=== PATIENT | male | born 1960 | race Caucasian/White ===

== ENCOUNTER 2017-10-15 22:47 | Inpatient (IN) | payer BC ==
[~2017-10-15] VITALS: Ht 170.2 cm; Wt 105.1 kg
[2017-10-15 23:00] VITALS: BP 130/86; PULSE 72; RESP 20; TEMP 98.3; O2SAT 97
[2017-10-15 23:40] LABS: BASOPHIL # 0.1 TH/MM3 (0-0.2); BASOPHIL % 0.9 % (0.0-2.0); EOSINOPHIL # 0.1 TH/MM3 (0-0.4); EOSINOPHIL % 0.9 % (0.0-4.0); HEMATOCRIT 32.3 % (39.0-51.0); HEMOGLOBIN 9.9 GM/DL (13.0-17.0); LYMPH % 34.3 % (9.0-44.0); LYMPHOCYTE # 3.1 TH/MM3 (1.0-4.8); MEAN CELL VOLUME 65.1 FL (80.0-100.0); MEAN CORPUSCULAR HGB CONC 30.7 % (32.0-36.0); MEAN PLATELET VOLUME 8.8 FL (7.0-11.0); MONO % 8.5 % (0.0-8.0); MONOCYTE # 0.8 TH/MM3 (0-0.9); NEUT % 55.4 % (16.0-70.0); PLATELET COUNT 372 TH/MM3 (150-450); RED BLOOD COUNT 4.96 MIL/MM3 (4.50-5.90); RED CELL DISTRIBUTION WIDTH 21.1 % (11.6-17.2)
[2017-10-15 23:54] LABS: PROTHROMBIN TIME - PATIENT 10.6 SEC (9.8-11.6)
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
[2017-10-16 00:08] LABS: ALBUMIN 3.6 GM/DL (3.4-5.0); ALT (GPT) 55 U/L (12-78); AST (GOT) 38 U/L (15-37); BICARBONATE 27.5 MEQ/L (21.0-32.0); BLOOD UREA NITROGEN 9 MG/DL (7-18); CALCIUM 8.7 MG/DL (8.5-10.1); CHLORIDE 101 MEQ/L (98-107); GLOMERULAR FILTRATION RATE 69 ML/MIN (>89); GLUCOSE,RANDOM 106 MG/DL (74-106); SODIUM (NA) 138 MEQ/L (136-145)
[2017-10-16 00:10] LABS: ALKALINE PHOSPHATASE 73 U/L (45-117); TOTAL BILIRUBIN ADULT 0.5 MG/DL (0.2-1.0); TOTAL PROTEIN 7.4 GM/DL (6.4-8.2)
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
--- NOTE | 2017-10-16 01:28 | RADRPT ---
EXAM DATE/TIME: 10/16/2017 01:06 [facility] COMPARISON: No previous studies available for comparison. INDICATIONS : Fall pain in left knee. MEDICAL HISTORY : None. SURGICAL HISTORY : None. ENCOUNTER: Initial ACUITY: 1 day PAIN SCORE: 10/10 LOCATION: Left knee FINDINGS: 4 views of the left tibia and fibula reveal an acute comminuted fracture involving the medial and lat eral tibial plateaus. There is intra-articular extension to the medial and lateral tibial plateaus. T here is depression of the medial tibial plateau. The fibula is intact. Soft tissues are unremarkable. CONCLUSION: Proximal tibial fractures as detailed above. Steve Funes Jr., MD on October 16, 2017 at 1:25 Board Certified Radiologist. This report was verified electronically.
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
[2017-10-16] MEDS ORDERED: MORPHINE SULFATE 2 MG/ML INJ IV PUSH ONE (02:15)
[2017-10-16] MEDS ORDERED: TETANUS/DIPHTHERIA TOXOID ADULT 0.5 ML VIAL IM ONE (02:15)
[2017-10-16] MEDS ORDERED: NALOXONE HCL 0.4 MG/ML AMP IV PUSH PRN (02:45)
[2017-10-16] MEDS ORDERED: SODIUM CHLORIDE 0.9% FLUSH 10 ML FLUSH IV FLUSH PRN (02:45)
[2017-10-16] MEDS ORDERED: MORPHINE SULFATE 4 MG/ML INJ IV PUSH PRN ×2 (02:45→14:45)
[2017-10-16 03:36] VITALS: BP 110/57; PULSE 77; RESP 15; O2SAT 98
[2017-10-16 06:16] VITALS: BP 117/59; PULSE 72; RESP 16; O2SAT 100
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
[2017-10-16] MEDS: SODIUM CHLORIDE 0.9% FLUSH 10 ML FLUSH IV FLUSH SCH ×2 (08:23→20:35)
[2017-10-16] MEDS ORDERED: ONDANSETRON HCL 4 MG/2 ML VIAL ONE (08:27)
[2017-10-16] MEDS ORDERED: ONDANSETRON HCL 4 MG/2 ML VIAL IV PUSH ONE (08:30)
[2017-10-16] MEDS ORDERED: LORazepam 2 MG TAB PO PRN (10:15)
[2017-10-16] MEDS ORDERED: LORazepam 2 MG/ML VIAL IV PUSH PRN ×4 (10:15→11:00)
[2017-10-16] MEDS ORDERED: FLUMAZENIL 0.5 MG/5 ML VIAL IV PUSH PRN (10:15)
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
[2017-10-16] MEDS ORDERED: LISI10TA PO (10:43)
[2017-10-16] MEDS ORDERED: PRIL20TA2 PO (10:43)
[2017-10-16] MEDS ORDERED: ENALAPRILAT 1.25 MG/ML VIAL IV PUSH PRN (11:00)
[2017-10-16] MEDS ORDERED: FAMOTIDINE 20 MG/2 ML VIAL ONE (11:43)
[2017-10-16] MEDS ORDERED: DEXAMETHASONE SOD PHOS 20 MG/5 ML VIAL ONE (11:43)
[2017-10-16] MEDS ORDERED: ACETAMINOPHEN 1000 MG/100 ML 100 ML IV ONE ×2 (11:43→13:00)
[2017-10-16] MEDS ORDERED: PROPOFOL 200 MG/20 ML AMP IV ONE (12:00)
[2017-10-16] MEDS ORDERED: LIDOCAINE HCL 1% PF 5 ML SYRINGE OTHER ONE (12:00)
[2017-10-16] MEDS ORDERED: ONDANSETRON HCL 4 MG/2 ML VIAL IV ONE (12:00)
[2017-10-16] MEDS ORDERED: GENTAMICIN SULFATE 80 MG/2 ML VIAL ONE (12:33)
[2017-10-16] MEDS ORDERED: ceFAZolin 2 GM PREMIX 50 ML ONE (12:33)
[2017-10-16] MEDS ORDERED: VANCOMYCIN HCL 1000 MG VIAL ONE (12:34)
[2017-10-16] MEDS ORDERED: SODIUM CHLOR 0.9% 250 ML INJ 250 ML ONE (12:34)
[2017-10-16] MEDS ORDERED: DEXAMETHASONE SOD PHOS 20 MG/5 ML VIAL IV ONE (12:45)
[2017-10-16] MEDS ORDERED: FAMOTIDINE 20 MG/2 ML VIAL IV ONE (13:00)
--- NOTE | 2017-10-16 14:36 | PD.OP ---
cc: Lionel Gee MD Operative Report Date of Surgery: Oct 16, 2017 Preoperative Diagnosis: Comminuted left medial tibial plateau fracture Postoperative Diagnosis: Procedure: Closed reduction left tibial plateau fracture, external fixation left leg Anesthesia: Gen. Surgeon: Lionel Gee Mechanical Service Specialist(s): Jeancarlos Bernal PA-C The surgical procedure was assisted by my physician assistant operator. My P.A. presence was necessary throughout this case for the manipulation and positioning of the surgical extremity. My P.A. was assisting me throughout the duration of this procedure. The skill set of a physician assistant operator was medically necessary to complete this procedure. During the surgical case the surgical clinical reviewer was working at the back table and the physician assistant operator was directly assisting me. Operation and Findings: Implants used: Orthofix This patient sustained an injury resulting in comminuted fractures of left tibial plateau. Patient was seen and evaluated preoperatively and found to have too much swelling to proceed with open reduction internal fixation. Risk and benefits of surgery were discussed in depth with patient and informed consent was confirmed. Surgical site was marked. Patient was brought to operating room and placed on the OR table. Patient was given IV sedation and GETA. Patient received IV antibiotics and timeout procedure was performed. Operative leg was prepped with alcohol followed by Hibiclens and draped in the usual sterile fashion. Two small incisions were made along the anterior distal femur and the tibia shaft. Soft tissue was dissected bluntly. Cannulas were placed down to the cortex of bone. Pin sites were predrilled. Orthofix pins were placed into the femur and tibia. Fluoroscopy was used to confirm appropriate pin placement. An external fixator construct was now created with clamps and bars. Next attention was turned to reduction. Traction was applied. Fracture was manipulated. Good alignment of the fracture was obtained. Fluoroscopy was used to confirm appropriate alignment of fracture. The external fixator was now tightened to hold reduction. Sterile dressings were applied. Patient was awakened and transferred to recovery room in stable condition. The soft tissue was reevaluated. Patient did have swelling around the knee and calf but compartments were soft and compressible with no signs of compartment syndrome. Lionel Gee MD Oct 16, 2017 14:36
[2017-10-16] MEDS ORDERED: diphenhydrAMINE HCL 25 MG CAP PO PRN (14:45)
[2017-10-16] MEDS ORDERED: Post-op Orders (for Pharmacy) XX ONE (14:45)
[2017-10-16] MEDS ORDERED: ONDANSETRON HCL 4 MG/2 ML VIAL IVP PRN (14:45)
[2017-10-16] MEDS ORDERED: DO NOT ADM ANY ANTICOAGULANT DRUGS PRN (14:52)
[2017-10-16] MEDS ORDERED: *morphine SULFATE 10 MG/ML PERIprocedure ONLY ONE ×3 (14:57→15:58)
[2017-10-16] MEDS ORDERED: MIDAZOLAM HCL 2 MG/2 ML VIAL ONE (14:59)
[2017-10-16] MEDS: LACTATED RINGER'S 1000 ML INJ 1,000 ML IV SCH (15:00)
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
--- NOTE | 2017-10-16 15:12 | RADRPT ---
EXAM DATE/TIME: 10/16/2017 14:27 [place] COMPARISON: None. INDICATIONS : <<External fixation left tibia.>> MEDICAL HISTORY : None. SURGICAL HISTORY : None. ENCOUNTER: Initial ACUITY: 1 day PAIN SCORE: Non-responsive. LOCATION: Left Tibia FINDINGS: Two view examination of the left tibia demonstrates improvement in alignment at the breast tibial boris teau fracture, status post external fixation. CONCLUSION: 1. External fixation with improvement in alignment of proximal tibial fracture. Francesco Mccormack MD on October 16, 2017 at 15:09 Board Certified Radiologist. This report was verified electronically.
[2017-10-16 17:35] VITALS: BP 138/97; PULSE 94; RESP 17; TEMP 97.4; O2SAT 96
[2017-10-16] MEDS: ACETAMINOPHEN/HYDROcodone 325 MG/10 MG TAB PO PRN (17:35)
[2017-10-16] MEDS ORDERED: CITA10TA4 PO (17:54)
--- NOTE | 2017-10-16 19:50 | EKG ---
Date Performed: 10/15/2017 Time Performed: 23:14:55 PTAGE: 57 years EKG: Sinus rhythm NORMAL ECG NO PREVIOUS TRACING DOCTOR: Pema Glasgow Interpretating Date/Time 10/16/2017 19:49:39
[2017-10-16 20:35] VITALS: BP 152/79; PULSE 105; RESP 17; TEMP 97.9; O2SAT 97
[2017-10-16] MEDS: DOCUSATE SODIUM 50 MG/SENNA 8.6 MG TAB PO SCH (20:35)
[2017-10-16] MEDS: LORazepam 1 MG TAB PO PRN (20:54)
[2017-10-16] MEDS: KETOROLAC TROMETHAMINE 30 MG/ML (IVP) VIAL IVP SCH (21:58)
[2017-10-16 22:00] VITALS: PULSE 102
[2017-10-16] MEDS ORDERED: LORazepam 2 MG/ML VIAL IV PUSH ONE (22:00)
[2017-10-16] MEDS: SODIUM CHLOR 0.9% 1000 ML INJ 1,000 ML IV SCH (22:55)
[2017-10-17] VITALS (11 sets, daily range): BP systolic 128–150; BP diastolic 75–98; PULSE 78–108; RESP 18–19; TEMP 95.7–98.8; O2SAT 93–98
[2017-10-17] MEDS: LACTATED RINGER'S 1000 ML INJ 1,000 ML IV SCH ×2 (03:02→20:18)
[2017-10-17] MEDS: LORazepam 1 MG TAB PO PRN ×2 (03:22→20:16)
[2017-10-17] MEDS: ACETAMINOPHEN/HYDROcodone 325 MG/10 MG TAB PO PRN ×5 (03:23→20:15)
[2017-10-17 05:32] LABS: AUTOMATED NEUTROPHIL # 10.9 TH/MM3 (1.8-7.7); BASOPHIL % 0.1 % (0.0-2.0); HEMOGLOBIN 8.8 GM/DL (13.0-17.0); LYMPH % 4.8 % (9.0-44.0); LYMPHOCYTE # 0.6 TH/MM3 (1.0-4.8); MEAN CELL VOLUME 65.3 FL (80.0-100.0); MEAN CORPUSCULAR HEMOGLOBIN 19.7 PG (27.0-34.0); MEAN CORPUSCULAR HGB CONC 30.2 % (32.0-36.0); MEAN PLATELET VOLUME 8.5 FL (7.0-11.0); MONO % 9.1 % (0.0-8.0); MONOCYTE # 1.2 TH/MM3 (0-0.9); PLATELET COUNT 291 TH/MM3 (150-450); RED BLOOD COUNT 4.44 MIL/MM3 (4.50-5.90); RED CELL DISTRIBUTION WIDTH 20.5 % (11.6-17.2); WHITE BLOOD COUNT 12.7 TH/MM3 (4.0-11.0)
[2017-10-17] MEDS: KETOROLAC TROMETHAMINE 30 MG/ML (IVP) VIAL IVP SCH ×3 (05:46→20:15)
[2017-10-17 06:08] LABS: BICARBONATE 26.5 MEQ/L (21.0-32.0); BLOOD UREA NITROGEN 14 MG/DL (7-18); CALCIUM 8.4 MG/DL (8.5-10.1); CHLORIDE 100 MEQ/L (98-107); CREATININE 1.11 MG/DL (0.60-1.30); GLOMERULAR FILTRATION RATE 68 ML/MIN (>89); GLUCOSE,RANDOM 136 MG/DL (74-106); SODIUM (NA) 134 MEQ/L (136-145); TROPONIN I LESS THAN 0.02 NG/ML (0.02-0.05)
--- NOTE | 2017-10-17 06:42 | PD.ORT.PN ---
Subjective Subjective Remarks Resting comfortably with no new complaints Objective Vitals Vital Signs Date Time Temp Pulse Resp B/P (MAP) Pulse Ox O2 Delivery O2 Flow Rate FiO2 10/17/17 04:15 96.7 96 18 150/90 (110) 96 10/17/17 04:05 78 10/17/17 00:46 96.8 96 18 134/98 (110) 93 10/17/17 00:10 92 10/16/17 22:00 102 10/16/17 20:35 97.9 105 17 152/79 (103) 97 10/16/17 17:35 97.4 94 17 138/97 (111) 96 10/16/17 16:45 97.5 95 11 134/73 (93) 97 Nasal Cannula 2 10/16/17 16:30 96 12 138/74 (95) 97 10/16/17 16:15 95 12 168/96 (120) 97 10/16/17 16:00 100 21 152/94 (113) 100 10/16/17 15:45 89 12 147/82 (103) 98 10/16/17 15:30 85 10 163/73 (103) 98 10/16/17 15:15 84 16 158/94 (115) 99 10/16/17 15:00 89 11 159/86 (110) 99 Nasal Cannula 2 10/16/17 14:50 97.5 96 12 171/83 (112) 97 Nasal Cannula 2 I/O 10/16/17 10/16/17 10/16/17 10/17/17 10/17/17 10/17/17 07:00 15:00 23:00 07:00 15:00 23:00 Intake Total 1000 ml 240 ml 989 ml Output Total 5 ml Balance 995 ml 240 ml 989 ml Intake Oral 240 ml IV Total 1000 ml 989 ml Output Estimated Blood Loss 5 ml # Voids 1 # Bowel Movements 0 Result Diagram: 10/17/17 0453 10/17/17 0453 Imaging Last 24 hours Impressions Tibia/Fibula X-Ray 10/16/17 0050 Signed Impressions: Service Date/Time: Monday, October 16, 2017 01:06 - CONCLUSION: Proximal tibial fractures as detailed above. Steve Funes Jr., MD Lower Extremity CT 10/16/17 0000 Signed Impressions: Service Date/Time: Monday, October 16, 2017 05:54 - CONCLUSION: Comminuted proximal tibial fracture as detailed above. Steve Funes Jr., MD Objective Remarks LLE: +CKS. +swelling of lower leg. full sensation distally. good dorsiflexion. Assessment & Plan Assessment and Plan Left Tibial Plateau Fx X Fix POD 1 Nonweightbearing left lower extremity Pin care twice a day Ice and elevation to decrease swelling. Will be at least 5-7 days until swelling is improved for surgery. We'll plan on discharge to home in which she will stay at a hotel. [facility] for the next day or 2 days prior to going back to [place]. He will be scheduled for surgery next week for definitive fixation of left tibia plateau fracture. He will need to be on Lovenox and will discontinue Lovenox the day prior to surgery. Will plan on discharge tomorrow. Andrés Bernal Jr. Oct 17, 2017 06:42
[2017-10-17] MEDS: SODIUM CHLORIDE 0.9% FLUSH 10 ML FLUSH IV FLUSH SCH ×2 (09:55→20:17)
[2017-10-17] MEDS: DOCUSATE SODIUM 50 MG/SENNA 8.6 MG TAB PO SCH ×2 (09:55→20:14)
[2017-10-17] MEDS: SODIUM CHLOR 0.9% 1000 ML INJ 1,000 ML IV SCH ×2 (10:50→20:18)
--- NOTE | 2017-10-17 13:07 | HHI.PR ---
Subjective Remarks Nursing denies any deterioration since last night. Patient tolerating p.o. intake. Not requiring IV pain medication. CIWA score 0. Objective Vital Signs Date Time Temp Pulse Resp B/P (MAP) Pulse Ox O2 Delivery O2 Flow Rate FiO2 10/17/17 11:45 95.7 104 19 141/87 (105) 97 10/17/17 09:41 102 10/17/17 07:58 96.8 85 19 134/75 (94) 94 10/17/17 04:15 96.7 96 18 150/90 (110) 96 10/17/17 04:05 78 10/17/17 00:46 96.8 96 18 134/98 (110) 93 10/17/17 00:10 92 10/16/17 22:00 102 10/16/17 20:35 97.9 105 17 152/79 (103) 97 10/16/17 17:35 97.4 94 17 138/97 (111) 96 10/16/17 16:45 97.5 95 11 134/73 (93) 97 Nasal Cannula 2 10/16/17 16:30 96 12 138/74 (95) 97 10/16/17 16:15 95 12 168/96 (120) 97 10/16/17 16:00 100 21 152/94 (113) 100 10/16/17 15:45 89 12 147/82 (103) 98 10/16/17 15:30 85 10 163/73 (103) 98 10/16/17 15:15 84 16 158/94 (115) 99 10/16/17 15:00 89 11 159/86 (110) 99 Nasal Cannula 2 10/16/17 14:50 97.5 96 12 171/83 (112) 97 Nasal Cannula 2 I/O 10/16/17 10/16/17 10/16/17 10/17/17 10/17/17 10/17/17 07:00 15:00 23:00 07:00 15:00 23:00 Intake Total 1000 ml 240 ml 1349 ml Output Total 5 ml 500 ml Balance 995 ml 240 ml 849 ml Intake Oral 240 ml 360 ml IV Total 1000 ml 989 ml Output Urine Total 500 ml Estimated Blood Loss 5 ml # Voids 1 # Bowel Movements 0 0 Result Diagram: 10/17/1745210/17/17452 Objective Remarks Left lower extremity in external fixator, able to wiggle toes on bilateral feet , unlabored breathing, no cyanosis, no acute distress A/P Assessment and Plan Postop day 1 left tibial plateau fracture repair, with external fixator placed LOC/syncope - no recurrence, likely from dehydration, may benefit from holter upon discharge. Hypertension -Stable now off of home medications, monitor Mild myositis -Likely secondary to dehydration and or fall injury, continue IV fluids Anticipate discharge tomorrow. Freddie Vazquez MD Oct 17, 2017 13:07
[2017-10-17] MEDS: ENOXAPARIN SODIUM 40 MG/0.4 ML SYRINGE SQ SCH (14:09)
[2017-10-17] MEDS: PANTOPRAZOLE SOD 40 MG DELAYED RELEASE TAB PO SCH (17:00)
[2017-10-18] VITALS (8 sets, daily range): BP systolic 122–137; BP diastolic 65–78; PULSE 88–100; RESP 17–19; TEMP 96.9–97.8; O2SAT 95–98
[2017-10-18] MEDS: ACETAMINOPHEN/HYDROcodone 325 MG/10 MG TAB PO PRN ×5 (05:05→21:15)
[2017-10-18] MEDS: KETOROLAC TROMETHAMINE 30 MG/ML (IVP) VIAL IVP SCH ×2 (05:05→13:58)
[2017-10-18] MEDS: DOCUSATE SODIUM 50 MG/SENNA 8.6 MG TAB PO SCH ×2 (08:20→21:15)
[2017-10-18] MEDS: PANTOPRAZOLE SOD 40 MG DELAYED RELEASE TAB PO SCH (08:20)
[2017-10-18] MEDS: SODIUM CHLORIDE 0.9% FLUSH 10 ML FLUSH IV FLUSH SCH ×2 (08:22→21:15)
--- NOTE | 2017-10-18 09:16 | PD.ORT.PN ---
Subjective Subjective Remarks Resting comfortably with no new complaints Objective Vitals Vital Signs Date Time Temp Pulse Resp B/P (MAP) Pulse Ox O2 Delivery O2 Flow Rate FiO2 10/18/17 07:32 96.9 88 19 132/69 (90) 95 10/18/17 04:45 97.5 97 18 122/65 (84) 96 10/18/17 04:00 94 10/18/17 00:10 97 10/17/17 23:20 96.6 103 18 128/79 (95) 97 10/17/17 20:00 105 10/17/17 19:38 97.9 104 18 129/81 (97) 98 10/17/17 15:23 98.8 108 19 149/87 (107) 96 10/17/17 11:45 95.7 104 19 141/87 (105) 97 10/17/17 09:41 102 I/O 10/17/17 10/17/17 10/17/17 10/18/17 10/18/17 10/18/17 07:00 15:00 23:00 07:00 15:00 23:00 Intake Total 1349 ml 950 ml 640 ml Output Total 500 ml 600 ml 400 ml Balance 849 ml 350 ml 240 ml Intake Oral 360 ml 950 ml 640 ml IV Total 989 ml Output Urine Total 500 ml 600 ml 400 ml # Bowel Movements 0 0 Result Diagram: 10/17/17 0453 10/17/17 0453 Imaging Last 24 hours Impressions Tibia/Fibula X-Ray 10/16/17 0050 Signed Impressions: Service Date/Time: Monday, October 16, 2017 01:06 - CONCLUSION: Proximal tibial fractures as detailed above. Steve Funes Jr., MD Lower Extremity CT 10/16/17 0000 Signed Impressions: Service Date/Time: Monday, October 16, 2017 05:54 - CONCLUSION: Comminuted proximal tibial fracture as detailed above. Steve Funes Jr., MD Objective Remarks LLE: +CKS. 3+swelling of lower leg. full sensation distally. good dorsiflexion. Assessment & Plan Assessment and Plan Left Tibial Plateau Fx X Fix POD 2 Nonweightbearing left lower extremity Pin care twice a day Ice and elevation to decrease swelling. Will be at least 5-7 days until swelling is improved for surgery. We'll plan on discharge to home if safe before going back to [place]. He will be scheduled for surgery next week for definitive fixation of left tibia plateau fracture. He will need to be on Lovenox and will discontinue Lovenox the day prior to surgery. Will plan on discharge today if a safe plan is in place. Andrés Bernal Jr. Oct 18, 2017 09:16
[2017-10-18] MEDS ORDERED: WALKER WHEELS/F1 MIS (09:19)
[2017-10-18] MEDS ORDERED: XARE10TA PO (09:19)
[2017-10-18] MEDS ORDERED: HYDR-3583 PO (09:19)
[2017-10-18] MEDS: SODIUM CHLOR 0.9% 1000 ML INJ 1,000 ML IV SCH ×2 (10:40→21:23)
[2017-10-18] MEDS: ENOXAPARIN SODIUM 40 MG/0.4 ML SYRINGE SQ SCH (13:58)
[2017-10-18] MEDS ORDERED: WHEEMIS3 (16:33)
[2017-10-18] MEDS ORDERED: COMMODE 3-IN-11 MIS (16:33)
--- NOTE | 2017-10-18 16:45 | HHI.DCPOC ---
Discharge Care Plan Diagnosis: (1) Tibial plateau fracture, left Goals to Promote Your Health * To prevent worsening of your condition and complications * To maintain your health at the optimal level Directions to Meet Your Goals Take your medications as prescribed Follow your dietary instruction Follow activity as directed Keep your appointments as scheduled Take your immunizations and boosters as scheduled If your symptoms worsen call your PCP, if no PCP go to Urgent Care Center or Emergency Room Smoking is Dangerous to Your Health. Avoid second hand smoke Call the 24-hour hour crisis hotline for domestic abuse at Freddie Vazquez MD Oct 18, 2017 16:45
[2017-10-18] MEDS: LORazepam 1 MG TAB PO PRN (21:15)
[2017-10-18] MEDS: LACTATED RINGER'S 1000 ML INJ 1,000 ML IV SCH (21:23)
--- NOTE | 2017-10-18 22:31 | HHI.PR ---
Subjective Remarks Nursing denies any deterioration since last night. Patient tolerating p.o. intake. Says he can't go home. But when suggested SNF, he says that we are just trying to kick him out when he personally feels he needs another day for his leg to heal. D/w ortho, stable for discharge, edema will take days to improve. Rn reported that pt told nursing and associated staff to "get out" when they tried to engage him about to going SNF. Objective Vital Signs Date Time Temp Pulse Resp B/P (MAP) Pulse Ox O2 Delivery O2 Flow Rate FiO2 10/18/17 19:45 97.8 96 17 132/65 (87) 95 10/18/17 15:43 97.6 100 19 135/77 (96) 98 10/18/17 12:05 18 10/18/17 11:44 97.8 97 19 137/78 (97) 97 10/18/17 07:32 96.9 88 19 132/69 (90) 95 10/18/17 04:45 97.5 97 18 122/65 (84) 96 10/18/17 04:00 94 10/18/17 00:10 97 10/17/17 23:20 96.6 103 18 128/79 (95) 97 I/O 10/17/17 10/17/17 10/17/17 10/18/17 10/18/17 10/18/17 07:00 15:00 23:00 07:00 15:00 23:00 Intake Total 1349 ml 950 ml 640 ml 800 ml Output Total 500 ml 600 ml 400 ml 500 ml Balance 849 ml 350 ml 240 ml 300 ml Intake Oral 360 ml 950 ml 640 ml 800 ml IV Total 989 ml Output Urine Total 500 ml 600 ml 400 ml 500 ml # Bowel Movements 0 0 Result Diagram: 10/17/17 0453 10/17/17 0453 Objective Remarks Left lower extremity in external fixator, able to wiggle toes on bilateral feet , unlabored breathing, no cyanosis, no acute distress disengaged unpleasant mood, awake, alert A/P Assessment and Plan Postop day 2 left tibial plateau fracture repair, with external fixator placed LOC/syncope - no recurrence, likely from dehydration, may benefit from holter upon discharge. Hypertension -Stable now off of home medications, monitor Anticipate discharge to SNF. Pt originally wanting to stay in the hospital for no specific valid reason. He later agreed to SNF by the evening; still awaiting acceptance. Freddie Vazquez MD Oct 18, 2017 22:30
[2017-10-19] VITALS (9 sets, daily range): BP systolic 118–147; BP diastolic 68–72; PULSE 87–131; RESP 17; TEMP 96.4–98.1; O2SAT 96–100
[2017-10-19] MEDS: ACETAMINOPHEN/HYDROcodone 325 MG/10 MG TAB PO PRN ×7 (00:28→22:51)
[2017-10-19] MEDS ORDERED: LACTULOSE SYRUP 20 GM/30 ML CUP PO PRN (01:45)
[2017-10-19] MEDS ORDERED: BISACODYL 10 MG SUPP RECTAL PRN (01:45)
--- NOTE | 2017-10-19 06:40 | PD.ORT.PN ---
Subjective Subjective Remarks Resting comfortably with no new complaints Objective Vitals Vital Signs Date Time Temp Pulse Resp B/P (MAP) Pulse Ox O2 Delivery O2 Flow Rate FiO2 10/19/17 04:25 96.8 94 17 147/68 (94) 100 10/19/17 04:00 87 10/19/17 00:25 96.5 98 17 118/68 (85) 99 10/19/17 00:00 99 10/18/17 20:30 92 10/18/17 19:45 97.8 96 17 132/65 (87) 95 10/18/17 15:43 97.6 100 19 135/77 (96) 98 10/18/17 12:05 18 10/18/17 11:44 97.8 97 19 137/78 (97) 97 10/18/17 07:32 96.9 88 19 132/69 (90) 95 I/O 10/18/17 10/18/17 10/18/17 10/19/17 10/19/17 10/19/17 07:00 15:00 23:00 07:00 15:00 23:00 Intake Total 640 ml 800 ml Output Total 400 ml 500 ml Balance 240 ml 300 ml Intake Oral 640 ml 800 ml Output Urine Total 400 ml 500 ml # Bowel Movements 0 Result Diagram: 10/17/17 0453 10/17/17 0453 Imaging Last 24 hours Impressions Tibia/Fibula X-Ray 10/16/17 0050 Signed Impressions: Service Date/Time: Monday, October 16, 2017 01:06 - CONCLUSION: Proximal tibial fractures as detailed above. Steve Funes Jr., MD Lower Extremity CT 10/16/17 0000 Signed Impressions: Service Date/Time: Monday, October 16, 2017 05:54 - CONCLUSION: Comminuted proximal tibial fracture as detailed above. Steve Funes Jr., MD Objective Remarks LLE: +CKS. 3+swelling of lower leg. full sensation distally. good dorsiflexion. Assessment & Plan Assessment and Plan Left Tibial Plateau Fx X Fix POD 3 Nonweightbearing left lower extremity Pin care twice a day Ice and elevation to decrease swelling. Swelling should be improved by Sunday for surgery. He has insurance and is getting authorization for rehabilitation for the weekend. We will have him follow-up in office on Sunday to evaluate swelling. If swelling is appropriate and we will plan on surgery Sunday. He will need to continue on through Sunday and then hold on Sunday Andrés Bernal Jr. Oct 19, 2017 06:40
[2017-10-19] MEDS: PANTOPRAZOLE SOD 40 MG DELAYED RELEASE TAB PO SCH (08:38)
[2017-10-19] MEDS: MAGNESIUM HYDROXIDE SUSP 30 ML CUP PO SCH ×2 (08:38→20:38)
[2017-10-19] MEDS: DOCUSATE SODIUM 50 MG/SENNA 8.6 MG TAB PO SCH ×2 (08:38→20:36)
[2017-10-19] MEDS: DOCUSATE SODIUM 100 MG/10 ML UDC PO SCH ×2 (08:38→20:38)
[2017-10-19] MEDS: SODIUM CHLOR 0.9% 1000 ML INJ 1,000 ML IV SCH ×2 (08:40→20:51)
[2017-10-19] MEDS: SODIUM CHLORIDE 0.9% FLUSH 10 ML FLUSH IV FLUSH SCH ×2 (08:40→20:36)
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
[2017-10-19] MEDS ORDERED: ENOX40P SQ (11:06)
[2017-10-19] MEDS ORDERED: LORA-474 PO (11:09)
[2017-10-19] MEDS ORDERED: VIST25CA PO (11:09)
[2017-10-19] MEDS: ENOXAPARIN SODIUM 40 MG/0.4 ML SYRINGE SQ SCH (13:12)
[2017-10-19] MEDS: LORazepam 1 MG TAB PO PRN ×2 (13:12→20:35)
[2017-10-19] MEDS: SENNOSIDES 8.6 MG TAB PO PRN (20:36)
[2017-10-19] MEDS: LACTATED RINGER'S 1000 ML INJ 1,000 ML IV SCH (20:51)
[2017-10-20] VITALS (7 sets, daily range): BP systolic 125–141; BP diastolic 62–73; PULSE 91–119; RESP 17–18; TEMP 96.2–98.4; O2SAT 95–99
[2017-10-20] MEDS: ACETAMINOPHEN/HYDROcodone 325 MG/10 MG TAB PO PRN ×5 (03:24→21:09)
[2017-10-20] MEDS: LORazepam 1 MG TAB PO PRN ×3 (03:24→18:27)
[2017-10-20] MEDS: SODIUM CHLORIDE 0.9% FLUSH 10 ML FLUSH IV FLUSH SCH ×2 (09:00→21:00)
[2017-10-20] MEDS: DOCUSATE SODIUM 100 MG/10 ML UDC PO SCH ×2 (09:10→21:00)
[2017-10-20] MEDS: MAGNESIUM HYDROXIDE SUSP 30 ML CUP PO SCH ×2 (09:10→21:00)
[2017-10-20] MEDS: DOCUSATE SODIUM 50 MG/SENNA 8.6 MG TAB PO SCH ×2 (09:11→21:09)
[2017-10-20] MEDS: PANTOPRAZOLE SOD 40 MG DELAYED RELEASE TAB PO SCH (09:11)
--- NOTE | 2017-10-20 09:12 | PD.ORT.PN ---
Subjective Subjective Remarks pt has expectant left lower extremity soreness no other verbal complaints today plan is to d/c to rehab today if authorization obtained Objective Vitals Vital Signs Date Time Temp Pulse Resp B/P (MAP) Pulse Ox O2 Delivery O2 Flow Rate FiO2 10/20/17 03:40 97.0 97 17 128/73 (91) 96 10/19/17 23:00 97.0 108 17 142/72 (95) 96 10/19/17 20:45 97.3 118 17 135/70 (91) 98 10/19/17 17:03 18 10/19/17 16:00 98.1 131 17 139/68 (91) 98 10/19/17 12:00 96.7 96 17 120/68 (85) 97 I/O 10/19/17 10/19/17 10/19/17 10/20/17 10/20/17 10/20/17 07:00 15:00 23:00 07:00 15:00 23:00 Intake Total 480 ml 480 ml 240 ml Output Total 750 ml Balance -270 ml 480 ml 240 ml Intake Oral 480 ml 480 ml 240 ml Output Urine Total 750 ml # Voids 3 2 # Bowel Movements 0 0 0 Result Diagram: 10/17/17 0453 10/17/17 0453 Imaging Last 24 hours Impressions Tibia/Fibula X-Ray 10/16/17 0050 Signed Impressions: Service Date/Time: Monday, October 16, 2017 01:06 - CONCLUSION: Proximal tibial fractures as detailed above. Steve Funes Jr., MD Lower Extremity CT 10/16/17 0000 Signed Impressions: Service Date/Time: Monday, October 16, 2017 05:54 - CONCLUSION: Comminuted proximal tibial fracture as detailed above. Steve Funes Jr., MD Objective Remarks also seen and examined by Dr. Richard Abdalla LLE: +CKS. swelling of lower leg. full sensation distally. good dorsiflexion Assessment & Plan Assessment and Plan Left Tibial Plateau Fx X Fix POD #4 Nonweightbearing left lower extremity Pin care twice a day Ice and elevation to decrease swelling. Lovenox DVT prop Swelling should be improved by Sunday for surgery. Authorization pending for discharge to [facility] today. Plan is to follow-up in office on Sunday with Dr. Romo to evaluate swelling. If swelling is appropriate and we will plan on surgery Sunday. He will need to continue on Lovenox through Sunday and then hold on Sunday Soledad Sung Oct 20, 2017 09:12
[2017-10-20] MEDS: SODIUM CHLOR 0.9% 1000 ML INJ 1,000 ML IV SCH ×2 (10:20→21:43)
[2017-10-20] MEDS: ENOXAPARIN SODIUM 40 MG/0.4 ML SYRINGE SQ SCH (14:44)
[2017-10-20] MEDS: LACTATED RINGER'S 1000 ML INJ 1,000 ML IV SCH (18:32)
--- NOTE | 2017-10-20 19:51 | HHI.PR ---
Subjective Remarks pain controlled patient states felt nauseous earlier Denies cp/sob Objective Vitals Vital Signs Date Time Temp Pulse Resp B/P (MAP) Pulse Ox O2 Delivery O2 Flow Rate FiO2 10/20/17 16:00 98.4 119 17 141/65 (90) 95 10/20/17 12:00 96.4 97 17 125/70 (88) 98 10/20/17 08:00 96.2 95 17 130/72 (91) 97 10/20/17 03:40 97.0 97 17 128/73 (91) 96 10/19/17 23:00 97.0 108 17 142/72 (95) 96 10/19/17 20:45 97.3 118 17 135/70 (91) 98 I/O 10/19/17 10/19/17 10/19/17 10/20/17 10/20/17 10/20/17 07:00 15:00 23:00 07:00 15:00 23:00 Intake Total 480 ml 480 ml 240 ml 480 ml Output Total 750 ml Balance -270 ml 480 ml 240 ml 480 ml Intake Oral 480 ml 480 ml 240 ml 480 ml Output Urine Total 750 ml # Voids 3 2 4 # Bowel Movements 0 0 0 0 Result Diagram: 10/17/1745210/17/17452 Objective Remarks AAox3 nad clear lungs BL S1S2 RRR soft abdomenb Left leg external fixator,, good color pin insertion sites appear clean dry and intact Procedures Closed reduction left tibial plateau fracture, external fixation left leg A/P Problem List: (1) Tibial plateau fracture, left ICD Code: S82.142A - Displaced bicondylar fracture of left tibia, initial encounter for closed fracture Status: Acute (2) Anxiety ICD Code: F41.9 - Anxiety disorder, unspecified Assessment and Plan SP left tibial plateau fracture repair, with external fixator placed continue pain control management as per orthopedic surgery recs Swelling should be improved by Sunday for surgery. Authorization pending for discharge to [facility] today. Plan is to follow-up in orthopedic office on Sunday with Dr. Romo to evaluate swelling. If swelling is appropriate and then surgery will be planned.. He will need to continue on Lovenox through Sunday and then hold on Sunday LOC/syncope - no recurrence, likely from dehydration, may benefit from holter upon discharge. Hypertension -Stable - resume home antihypertensive medications. Problem Qualifiers (1) Tibial plateau fracture, left: Qualified Codes: S82.142A - Displaced bicondylar fracture of left tibia, initial encounter for closed fracture Robert Tovar MD Oct 20, 2017 19:51
[2017-10-21] MEDS: LORazepam 1 MG TAB PO PRN ×4 (00:07→22:01)
[2017-10-21] MEDS: ACETAMINOPHEN/HYDROcodone 325 MG/10 MG TAB PO PRN ×5 (00:14→22:01)
[2017-10-21 00:15] VITALS: BP 126/61; PULSE 103; RESP 18; TEMP 96.9; O2SAT 98
[2017-10-21 04:20] VITALS: BP 127/67; PULSE 99; RESP 17; TEMP 96.8; O2SAT 95
[2017-10-21] MEDS: LACTATED RINGER'S 1000 ML INJ 1,000 ML IV SCH ×2 (07:02→19:32)
[2017-10-21 08:00] VITALS: BP 142/78; PULSE 93; RESP 18; TEMP 97; O2SAT 94
--- NOTE | 2017-10-21 08:33 | PD.ORT.PN ---
Subjective Subjective Remarks pt doing better, has no voiced complaints today Objective Vitals Vital Signs Date Time Temp Pulse Resp B/P (MAP) Pulse Ox O2 Delivery O2 Flow Rate FiO2 10/21/17 06:32 18 10/21/17 04:20 96.8 99 17 127/67 (87) 95 10/21/17 00:15 96.9 103 18 126/61 (82) 98 10/20/17 23:49 91 10/20/17 22:32 Room Air 10/20/17 20:15 97.4 115 18 132/62 (85) 99 10/20/17 19:52 114 10/20/17 16:00 98.4 119 17 141/65 (90) 95 10/20/17 12:00 96.4 97 17 125/70 (88) 98 I/O 10/20/17 10/20/17 10/20/17 10/21/17 10/21/17 10/21/17 07:00 15:00 23:00 07:00 15:00 23:00 Intake Total 240 ml 480 ml 480 ml Output Total 450 ml Balance 240 ml 480 ml 30 ml Intake Oral 240 ml 480 ml 480 ml Output Urine Total 450 ml # Voids 2 4 # Bowel Movements 0 0 0 Result Diagram: 10/17/17 0453 10/17/17 0453 Imaging Last 24 hours Impressions Tibia/Fibula X-Ray 10/16/17 0050 Signed Impressions: Service Date/Time: Monday, October 16, 2017 01:06 - CONCLUSION: Proximal tibial fractures as detailed above. Steve Funes Jr., MD Lower Extremity CT 10/16/17 0000 Signed Impressions: Service Date/Time: Monday, October 16, 2017 05:54 - CONCLUSION: Comminuted proximal tibial fracture as detailed above. Steve Funes Jr., MD Objective Remarks also seen and examined by Dr. Richard Abdalla LLE: +CKS. swelling of lower leg. full sensation distally. good dorsiflexion Assessment & Plan Assessment and Plan Left Tibial Plateau Fx X Fix POD #5 Nonweightbearing left lower extremity Pin care twice a day Ice and elevation to decrease swelling. Lovenox DVT prop Plan was to discharge to rehab over weekend but there was problems with insurance authorization Swelling should be improved for possible surgery Sunday by Dr. Romo. He will need to continue on Lovenox through Sunday and then hold on Sunday Soledad Sung Oct 21, 2017 08:33
[2017-10-21] MEDS: SODIUM CHLORIDE 0.9% FLUSH 10 ML FLUSH IV FLUSH SCH ×2 (09:00→21:00)
[2017-10-21] MEDS: MAGNESIUM HYDROXIDE SUSP 30 ML CUP PO SCH ×2 (09:00→21:00)
[2017-10-21] MEDS: DOCUSATE SODIUM 100 MG/10 ML UDC PO SCH ×2 (09:00→21:00)
[2017-10-21] MEDS: DOCUSATE SODIUM 50 MG/SENNA 8.6 MG TAB PO SCH ×2 (09:00→22:01)
[2017-10-21] MEDS: LISINOPRIL 10 MG TAB PO SCH (09:15)
[2017-10-21] MEDS: HYDROCHLOROTHIAZIDE 12.5 MG CAP PO SCH (09:15)
[2017-10-21] MEDS: PANTOPRAZOLE SOD 40 MG DELAYED RELEASE TAB PO SCH (09:16)
[2017-10-21] MEDS: CITALOPRAM HYDROBROMIDE 20 MG TAB PO SCH (09:16)
[2017-10-21 12:00] VITALS: BP 103/56; PULSE 117; RESP 20; TEMP 97.4; O2SAT 96
--- NOTE | 2017-10-21 13:39 | HM ---
Date Performed: 10/19/2017 Time Performed: 09:01:00 HOOKUP DATE: 10/19/17 09:01:00 AM Fri ANALYSIS START TIME: 10/19/2017 9:06:00 AM ANALYSIS END TIME: 10/20/2017 9:10:00 AM PATIENT AGE: 57 PATIENT HEIGHT PATIENT WEIGHT DRUG LIST PATIENT DIAGNOSIS TEST NARRATIVE: The patient's average heart rate was 106 BPM. Heart rates greater than 120 BPM were noted 36% of the time. No episodes of bradycardia were noted. No pauses exceeding 2.0 s econds were noted. No ventricular ectopics were noted. No supraventricular ectopics were note d. No episodes of ST depression (defined as -1.0 mm or more) were noted in channel 1. No episode s of ST depression (defined as -1.0 mm or more) were noted in channel 2. No episodes of ST depressio n (defined as -1.0 mm or more) were noted in channel 3. TEST INTERPRETATION: This patient has an overall heart rate of 106 and is in sinus tachycardia f or a fair amount of the holter monitor recording. No atrial or ventricular arrhythmias are present. N o pauses occur. There is no patient diary that was noted. Overall, this is a benign holter monitor, e xcept for the fact that the patient is in sinus tachycardia frequently with an average heart rate in the 24 hours of 106. Signed by : Marquis Paredes
[2017-10-21] MEDS: ENOXAPARIN SODIUM 40 MG/0.4 ML SYRINGE SQ SCH (14:00)
[2017-10-21 16:00] VITALS: BP 123/69; PULSE 112; RESP 19; TEMP 97.6; O2SAT 99
--- NOTE | 2017-10-21 18:40 | HHI.PR ---
Objective Vitals Vital Signs Date Time Temp Pulse Resp B/P (MAP) Pulse Ox O2 Delivery O2 Flow Rate FiO2 10/21/17 16:00 97.6 112 19 123/69 (87) 99 10/21/17 12:00 97.4 117 20 103/56 (72) 96 10/21/17 08:00 97.0 93 18 142/78 (99) 94 10/21/17 06:32 18 10/21/17 04:20 96.8 99 17 127/67 (87) 95 10/21/17 00:15 96.9 103 18 126/61 (82) 98 10/20/17 23:49 91 10/20/17 22:32 Room Air 10/20/17 20:15 97.4 115 18 132/62 (85) 99 10/20/17 19:52 114 I/O 10/20/17 10/20/17 10/20/17 10/21/17 10/21/17 10/21/17 07:00 15:00 23:00 07:00 15:00 23:00 Intake Total 240 ml 480 ml 480 ml Output Total 450 ml Balance 240 ml 480 ml 30 ml Intake Oral 240 ml 480 ml 480 ml Output Urine Total 450 ml # Voids 2 4 # Bowel Movements 0 0 0 Result Diagram: 10/17/1745210/17/17452 Objective Remarks AAox3 nad clear lungs BL S1S2 RRR soft abdomenb Left leg external fixator,, good color pin insertion sites appear clean dry and intact Procedures Closed reduction left tibial plateau fracture, external fixation left leg A/P Problem List: (1) Tibial plateau fracture, left ICD Code: S82.142A - Displaced bicondylar fracture of left tibia, initial encounter for closed fracture Status: Acute (2) Anxiety ICD Code: F41.9 - Anxiety disorder, unspecified Assessment and Plan SP left tibial plateau fracture repair, with external fixator placed continue pain control management as per orthopedic surgery recs Swelling should be improved by Sunday for surgery. Authorization pending for discharge to [facility] today. Plan is to follow-up in orthopedic office on Sunday with Dr. Romo to evaluate swelling. If swelling is appropriate and then surgery will be planned.. He will need to continue on Lovenox through Sunday and then hold on Sunday LOC/syncope - no recurrence, likely from dehydration, may benefit from holter upon discharge. Hypertension -Stable - resume home antihypertensive medications. Problem Qualifiers (1) Tibial plateau fracture, left: Qualified Codes: S82.142A - Displaced bicondylar fracture of left tibia, initial encounter for closed fracture Robert Tovar MD Oct 21, 2017 18:40
[2017-10-21 20:15] VITALS: BP 127/60; PULSE 98; RESP 18; TEMP 98.4; O2SAT 97
[2017-10-21] MEDS ORDERED: SODIUM CHLORID 0.9% 500 ML IV PRN (22:45)
[2017-10-21] MEDS ORDERED: CHLORHEXIDINE GLUCONATE 2 % 1 PACK (2 CLOTHS) TOPICAL PRN (22:45)
[2017-10-21] MEDS ORDERED: METOPROLOL TARTRATE 25 MG TAB PO PRN (22:45)
[2017-10-21] MEDS ORDERED: POVIDONE IODINE 5% (ANTISEPSIS KIT) 4 APPLICATIONS EACH NARE PRN (22:45)
[2017-10-21] MEDS ORDERED: LACTATED RINGER'S 1000 ML IV PRN (22:45)
[2017-10-22] VITALS (9 sets, daily range): BP systolic 120–143; BP diastolic 60–79; PULSE 94–128; RESP 17–18; TEMP 96.8–97.9; O2SAT 95–100
[2017-10-22] MEDS: ACETAMINOPHEN/HYDROcodone 325 MG/10 MG TAB PO PRN ×4 (01:04→23:56)
[2017-10-22] MEDS: LORazepam 1 MG TAB PO PRN ×3 (04:38→23:56)
--- NOTE | 2017-10-22 06:47 | PD.ORT.PN ---
Subjective Subjective Remarks Resting comfortably with no new complaints Objective Vitals Vital Signs Date Time Temp Pulse Resp B/P (MAP) Pulse Ox O2 Delivery O2 Flow Rate FiO2 10/22/17 04:20 97.7 94 17 130/60 (83) 96 10/22/17 00:15 97.4 103 18 120/61 (80) 96 10/21/17 20:15 98.4 98 18 127/60 (82) 97 10/21/17 19:37 18 10/21/17 16:00 97.6 112 19 123/69 (87) 99 10/21/17 12:00 97.4 117 20 103/56 (72) 96 10/21/17 08:00 97.0 93 18 142/78 (99) 94 I/O 10/21/17 10/21/17 10/21/17 10/22/17 10/22/17 10/22/17 07:00 15:00 23:00 07:00 15:00 23:00 Intake Total 480 ml 600 ml 480 ml Output Total 450 ml 575 ml Balance 30 ml 600 ml -95 ml Intake Oral 480 ml 600 ml 480 ml Output Urine Total 450 ml 575 ml # Voids 3 # Bowel Movements 0 0 0 Imaging Last 24 hours Impressions Tibia/Fibula X-Ray 10/16/17 0050 Signed Impressions: Service Date/Time: Monday, October 16, 2017 01:06 - CONCLUSION: Proximal tibial fractures as detailed above. Steve Funes Jr., MD Lower Extremity CT 10/16/17 0000 Signed Impressions: Service Date/Time: Monday, October 16, 2017 05:54 - CONCLUSION: Comminuted proximal tibial fracture as detailed above. Steve Funes Jr., MD Objective Remarks Left lower extremity: External fixator in place. Swelling is continued to improve. Skin is intact over incisional planes. Distally intact sensation good capillary refills of active dorsiflexion plantar flexion of foot. Compartments are soft Right lower extremity: Pain with hip or ankle range of motion. Tenderness to palpation over tibia plateau. Pain with range of motion of knee. Distally intact sensation with active dorsiflexion plantar flexion of foot Assessment & Plan Assessment and Plan Left Tibial Plateau Fx X Fix POD #6 Nonweightbearing left lower extremity Pin care twice a day Ice and elevation to decrease swelling. hold Lovenox DVT prop Swelling is improved significantly. We will plan on surgery this morning for open reduction internal fixation of left tibia toe with removal of external fixation Andrés Bernal Jr. Oct 22, 2017 06:47
[2017-10-22] MEDS ORDERED: ACETAMINOPHEN 1000 MG/100 ML 100 ML IV ONE (07:17)
[2017-10-22] MEDS ORDERED: VANCOMYCIN HCL 1000 MG VIAL ONE (07:48)
[2017-10-22] MEDS ORDERED: ceFAZolin 2 GM PREMIX 50 ML ONE (07:48)
[2017-10-22] MEDS ORDERED: GENTAMICIN SULFATE 80 MG/2 ML VIAL ONE (07:49)
[2017-10-22] MEDS ORDERED: SODIUM CHLOR 0.9% 250 ML INJ 250 ML ONE (07:49)
--- NOTE | 2017-10-22 08:57 | HHI.FF ---
Face to Face Verification Diagnosis: (1) Tibial plateau fracture, left Physical Therapy Knee: Knee fracture, Protocol: Left, Non weight bearing Canvas Knee Splint: Remove only with PT Left LE Weight Bearing: Non WB, No Strengthening, No Quad Sets Left LE Range of Motion: Passive ROM (0-90deg) Nursing Dressing Changes: Daily dressing change, Chiki wrap, 4x4s, Xeroform I have seen patient Marquis Lacy on 10/22/17. My clinical findings support the need for the requested home health care services because: Ltd mobility - disease progression I certify that my clinical findings support that this patient is homebound because: Post-op weakness Agusto Encinas/First Isidro MONTES Oct 22, 2017 08:57
[2017-10-22] MEDS: DOCUSATE SODIUM 50 MG/SENNA 8.6 MG TAB PO SCH ×2 (09:00→21:02)
[2017-10-22] MEDS: CITALOPRAM HYDROBROMIDE 20 MG TAB PO SCH (09:00)
[2017-10-22] MEDS: PANTOPRAZOLE SOD 40 MG DELAYED RELEASE TAB PO SCH (09:00)
[2017-10-22] MEDS: MAGNESIUM HYDROXIDE SUSP 30 ML CUP PO SCH ×2 (09:00→21:02)
[2017-10-22] MEDS: SODIUM CHLORIDE 0.9% FLUSH 10 ML FLUSH IV FLUSH SCH ×2 (09:00→21:00)
[2017-10-22] MEDS: LISINOPRIL 10 MG TAB PO SCH (09:00)
[2017-10-22] MEDS: DOCUSATE SODIUM 100 MG/10 ML UDC PO SCH ×2 (09:00→21:02)
[2017-10-22] MEDS: HYDROCHLOROTHIAZIDE 12.5 MG CAP PO SCH (09:00)
[2017-10-22] MEDS: LACTATED RINGER'S 1000 ML INJ 1,000 ML IV SCH (10:23)
[2017-10-22] MEDS ORDERED: Post-op Orders (for Pharmacy) XX ONE (10:30)
[2017-10-22] MEDS ORDERED: ACETAMINOPHEN/HYDROcodone 325 MG/10 MG TAB PO PRN (10:30)
--- NOTE | 2017-10-22 10:30 | PD.OP ---
cc: Lionel Gee MD Operative Report Date of Surgery: Oct 22, 2017 Preoperative Diagnosis: Displaced left tibial plateau fracture Postoperative Diagnosis: Procedure: Removal of external fixation, open reduction internal fixation left tibial plateau fracture Anesthesia: Gen. Surgeon: Lionel Gee Lehr Attendant(s): HENRY Stringer PA-C The surgical procedure was assisted by my physician wet process miller head assistant. My P.A. presence was necessary throughout this case for the manipulation and positioning of the surgical extremity. My P.A. was assisting me throughout the duration of this procedure. The skill set of a physician wet process miller head assistant was medically necessary to complete this procedure. During the surgical case the surgical specialist was working at the back table and the physician wet process miller head assistant was directly assisting me. Operation and Findings: This patient was seen and evaluated preoperatively. Patient sustained an injury resulting left medial tibial plateau fracture with fracture extending over into the lateral tibial plateau. Informed consent was obtained preoperatively after detailed discussion of the risks and benefits of surgery. Risk of surgery including bleeding, infection, nonunion, painful hardware, stiffness, loss of motion, arthritis, need for knee replacement, as well as medical complications including blood clots, stroke, heart attack, and were discussed. I also discussed the possibility of using allograft bone graft . Preoperatively the operative site was marked. Patient was brought to the operating room and placed on the operating room table. Intravenous sedation and general endotracheal anesthesia were administered. IV antibiotics were given and a time out procedure was preformed. Attention was now turned towards the medial tibial plateau. A 6 inch incision was made over the posterior medial aspect of the tibial plateau. Saphenous vein was protected. The PES insertion was elevated to expose the posterior medial tibial plateau. Care was taken to avoid injury to the medial collateral ligament. Fracture was visualized through the interval between hamstring tendon and gastrocnemius muscle. Attention was now turned toward reduction. Traction was applied. Fracture was manipulated. K wires were placed to hold provisional fixation. The medial tibial plateau fracture was reduced to the shaft first. Next the medial and lateral tibial plateau fragments were reduced. Fracture tenaculums were used to reduce and compress fractures. K wires were used for provisional fixation. Fluoroscopy confirmed well aligned fracture fragments. A [employer] medial tibia plateau plate was now placed along the posterior medial tibial plateau. Plate was provisionally held to bone with K wires. Fluoroscopy confirmed plate placement. 3.5 cortical screws were used to compress plate to bone. Additional locking screws were placed proximally and distally. All screws were predrilled and premeasured for appropriate length. Incisions were thoroughly irrigated. Attention was now turned to closure. Fascia and iliotibial band were closed with #1 Vicryl,. Subcutaneous tissues closed with 3-0 Vicryl and skin was closed with hugo. Sterile dressings were applied. The patient was transferred to recovery in stable condition. Lionel Gee MD Oct 22, 2017 10:30
[2017-10-22] MEDS ORDERED: MIDAZOLAM HCL 2 MG/2 ML VIAL ONE (10:58)
[2017-10-22] MEDS ORDERED: *morphine SULFATE 4 MG/ML PERIprocedure ONLY ONE ×4 (11:15→12:32)
[2017-10-22] MEDS ORDERED: *ONDANSETRON 4 MG VIAL PERIprocedural Use ONLY ONE (11:32)
[2017-10-22] MEDS ORDERED: *MEPERIDINE 25 MG INJ VIAL PERIprocedural Use ONLY ONE (11:36)
[2017-10-22] MEDS ORDERED: PROPOFOL 200 MG/20 ML AMP IV ONE (12:00)
[2017-10-22] MEDS ORDERED: DEXAMETHASONE SOD PHOS 4 MG/ML VIAL IV ONE (12:00)
[2017-10-22] MEDS ORDERED: ONDANSETRON HCL 4 MG/2 ML VIAL IV ONE (12:00)
[2017-10-22] MEDS ORDERED: SODIUM CHLOR 0.9% 250 ML INJ 250 ML IV ONE (12:00)
[2017-10-22] MEDS ORDERED: PHENYLEPH/NS 1000 MCG/10 ML SYR IV ONE (12:00)
[2017-10-22] MEDS ORDERED: LIDOCAINE HCL 1% PF 5 ML SYRINGE OTHER ONE (12:00)
[2017-10-22] MEDS: ERGOCALCIFEROL (VIT D2) 50,000 UNIT CAP PO SCH (14:07)
--- NOTE | 2017-10-22 14:55 | RADRPT ---
EXAM DATE/TIME: 10/22/2017 10:13 [place] COMPARISON: FLUOROSCOPY PORTABLE UP TO 1HR, October 22, 2017, 0:00. INDICATIONS : ORIF left tibal plateau. MEDICAL HISTORY : Unobtainable. SURGICAL HISTORY : Unobtainable. ENCOUNTER: Subsequent ACUITY: 4 - 6 days PAIN SCORE: Non-responsive. LOCATION: Left knee. FINDINGS: The exam demonstrates interval plating of the patient's proximal tibial fracture. The tibial plateau appears very well aligned post plating. CONCLUSION: 1. Excellent alignment of the patient's tibial fracture post plating. Gerry Nicholson MD on October 22, 2017 at 14:52 Board Certified Radiologist. This report was verified electronically.
[2017-10-22] MEDS ORDERED: ceFAZolin 2 GM PREMIX 50 ML IV SCH (17:00)
--- NOTE | 2017-10-22 19:15 | HHI.PR ---
Subjective Remarks no major overnight events. Denies cp/sob Denies diarrhea Objective Vitals Vital Signs Date Time Temp Pulse Resp B/P (MAP) Pulse Ox O2 Delivery O2 Flow Rate FiO2 10/22/17 18:24 128 10/22/17 16:00 97.4 110 18 123/79 (94) 100 10/22/17 13:00 97.6 110 16 155/67 (96) 98 10/22/17 12:30 115 14 133/72 (92) 100 Nasal Cannula 2 10/22/17 12:00 107 14 138/73 (94) 100 Nasal Cannula 2 10/22/17 11:45 102 14 128/68 (88) 95 Nasal Cannula 2 10/22/17 11:30 100 14 121/66 (84) 100 Nasal Cannula 2 10/22/17 11:15 100 14 112/78 (89) 95 Nasal Cannula 2 10/22/17 11:00 105 14 133/61 (85) 95 Nasal Cannula 2 10/22/17 07:27 96.8 99 18 143/69 (93) 97 10/22/17 04:20 97.7 94 17 130/60 (83) 96 10/22/17 00:15 97.4 103 18 120/61 (80) 96 10/21/17 20:15 98.4 98 18 127/60 (82) 97 10/21/17 19:37 18 I/O 10/21/17 10/21/17 10/21/17 10/22/17 10/22/17 10/22/17 07:00 15:00 23:00 07:00 15:00 23:00 Intake Total 480 ml 600 ml 480 ml 1440 ml 415 ml Output Total 450 ml 575 ml 1405 ml Balance 30 ml 600 ml -95 ml 35 ml 415 ml Intake Oral 480 ml 600 ml 480 ml 240 ml IV Total 415 ml Other 1200 ml Output Urine Total 450 ml 575 ml 1400 ml Estimated Blood Loss 5 ml # Voids 3 # Bowel Movements 0 0 0 0 Imaging Last Impressions Knee X-Ray 10/22/17 0000 Signed Impressions: Service Date/Time: Sunday, October 22, 2017 10:13 - CONCLUSION: 1. Excellent alignment of the patient's tibial fracture post plating. Gerry Nicholson MD Tibia/Fibula X-Ray 10/16/17 0050 Signed Impressions: Service Date/Time: Monday, October 16, 2017 01:06 - CONCLUSION: Proximal tibial fractures as detailed above. Steve Funes Jr., MD Lower Extremity CT 10/16/17 0000 Signed Impressions: Service Date/Time: Monday, October 16, 2017 05:54 - CONCLUSION: Comminuted proximal tibial fracture as detailed above. Steve Funes Jr., MD Maxillofacial CT 10/15/17 0000 Signed Impressions: Service Date/Time: Sunday, October 15, 2017 23:44 - CONCLUSION: 1. Frontal soft tissue swelling. 2. No fractures. Steve Funes Jr., MD Head CT 10/15/17 0000 Signed Impressions: Service Date/Time: Sunday, October 15, 2017 23:44 - CONCLUSION: No acute disease. Steve Funes Jr., MD Cervical Spine CT 10/15/17 0000 Signed Impressions: Service Date/Time: Sunday, October 15, 2017 23:44 - CONCLUSION: 1. No fracture or dislocation. 2. Degenerative changes. Steve Funes Jr., MD Objective Remarks AAox3 nad clear lungs BL S1S2 RRR soft abdomenb Left leg external fixator,, good color pin insertion sites appear clean dry and intact Procedures Closed reduction left tibial plateau fracture, external fixation left leg Medications and IVs Current Medications Medications (Trade) Dose Ordered Sig/Kyra Route Start Time Stop Time Status Last Admin (NS Flush) 2 ml UNSCH PRN IV FLUSH 10/16/17 02:45 (NS Flush) 2 ml BID IV FLUSH 10/16/17 09:00 10/23/17 08:38 (Narcan Inj) 0.4 mg UNSCH PRN IV PUSH 10/16/17 02:45 (Romazicon Inj) 0.2 mg Q1M PRN IV PUSH 10/16/17 10:15 (Ativan) 1 mg Q4H PRN PO 10/16/17 10:15 10/22/17 04:38 (Ativan Inj) 1 mg Q4H PRN IV PUSH 10/16/17 10:15 (Ativan) 2 mg Q2H PRN PO 10/16/17 10:15 (Ativan Inj) 2 mg Q2H PRN IV PUSH 10/16/17 11:00 (Ativan Inj) 2 mg Q1H PRN IV PUSH 10/16/17 11:00 (Ativan Inj) 2 mg Q15M PRN IV PUSH 10/16/17 10:15 (Ativan) 1 mg Q6H PRN PO 10/16/17 11:00 10/23/17 06:01 (Vasotec Inj) 1.25 mg Q6H PRN IV PUSH 10/16/17 11:00 (Suzanna-Colace) 1 tab BID PO 10/16/17 21:00 10/23/17 08:35 ([place] 10-325 Mg) 1 tab Q3H PRN PO 10/16/17 14:45 10/23/17 05:59 (Zofran Inj) 4 mg Q4H PRN IVP 10/16/17 14:45 (Benadryl) 25 mg Q6H PRN PO 10/16/17 14:45 (Protonix) 40 mg DAILY PO 10/17/17 17:00 10/23/17 08:35 (Colace Liq) 100 mg BID PO 10/19/17 09:00 10/23/17 08:34 (Milk Of Magnesia Liq) 30 ml BID PO 10/19/17 09:00 10/22/17 21:02 (Senokot) 17.2 mg Q12H PRN PO 10/19/17 01:45 10/19/17 20:36 (Lactulose Liq) 30 ml Q24H PRN PO 10/19/17 01:45 (Dulcolax Supp) 10 mg Q24H PRN RECTAL 10/19/17 01:45 (CeleXA) 10 mg DAILY PO 10/21/17 09:00 10/23/17 08:37 (Prinivil) 10 mg DAILY PO 10/21/17 09:00 10/23/17 08:38 (Microzide) 12.5 mg DAILY PO 10/21/17 09:00 10/23/17 08:36 Lactated Ringer's 1,000 ml @ 30 mls/hr Q24H PRN IV 10/21/17 22:45 10/24/17 22:44 Sodium Chloride 500 ml @ 30 mls/hr [id number] PRN IV 10/21/17 22:45 10/24/17 22:44 (Lopressor) 25 mg CHEMICAL RESEARCH TECHNICIAN PRN PO 10/21/17 22:45 10/24/17 22:44 (Betadine 5% Antisepsis Kit) 1 applic CHEMICAL RESEARCH TECHNICIAN PRN EACH NARE 10/21/17 22:45 10/24/17 22:44 (Chlorhexidine 2% Cloth) 3 pack CHEMICAL RESEARCH TECHNICIAN PRN TOPICAL 10/21/17 22:45 10/24/17 22:44 Lactated Ringer's 1,000 ml @ 80 mls/hr [id number] IV 10/22/17 10:23 10/23/17 02:36 (Lovenox Inj) 30 mg Q12H SQ 10/23/17 10:00 Vancomycin HCl 1000 mg/Sodium Chloride 250 ml @ 250 mls/hr Q12H IV 10/22/17 21:00 10/23/17 09:59 10/22/17 21:02 (Vitamin D3) 1,000 units DAILY PO 10/23/17 09:00 10/23/17 08:37 (Drisdol) 50,000 units Q7D PO 10/22/17 13:00 10/22/17 14:07 Cefazolin Sodium 2000 mg/Dextrose 50 ml @ 100 mls/hr Q8H IV 10/22/17 17:00 10/24/17 09:29 10/23/17 08:35 (Dilaudid Pf Inj) 1 mg Q3H PRN IV PUSH 10/23/17 06:45 (Toradol Inj) 15 mg Q6HR IM 10/23/17 06:45 10/24/17 12:01 10/23/17 08:43 A/P Problem List: (1) Tibial plateau fracture, left ICD Code: S82.142A - Displaced bicondylar fracture of left tibia, initial encounter for closed fracture Status: Acute (2) Anxiety ICD Code: F41.9 - Anxiety disorder, unspecified Assessment and Plan SP left tibial plateau fracture repair, with external fixator placed continue pain control management as per orthopedic surgery recs Swelling should be improved by Sunday for surgery. Authorization pending for discharge to [facility] today. Plan is to follow-up in orthopedic office on Sunday with Dr. Romo to evaluate swelling. If swelling is appropriate and then surgery will be planned.. He will need to continue on Lovenox through Sunday and then hold on Sunday 10/22 sp ORIF of Left tibial plateau fracture and removal of internal fixator. Management as per orthopedic surgery. LOC/syncope - no recurrence, likely from dehydration, may benefit from holter upon discharge. Hypertension -Stable - continue home antihypertensive medications. Problem Qualifiers (1) Tibial plateau fracture, left: Qualified Codes: S82.142A - Displaced bicondylar fracture of left tibia, initial encounter for closed fracture Robert Tovar MD Oct 22, 2017 19:15
[2017-10-22] MEDS: VANCOMYCIN INJ 1,000 MG in SODIUM CHLOR 0.9% 250 ML INJ 250 ML IV SCH (21:02)
[2017-10-22] MEDS: MORPHINE SULFATE 4 MG/ML INJ IV PUSH PRN (22:22)
[2017-10-23] VITALS (12 sets, daily range): BP systolic 120–136; BP diastolic 66–76; PULSE 96–110; RESP 18–20; TEMP 96.6–99.8; O2SAT 94–99
[2017-10-23] MEDS: MORPHINE SULFATE 4 MG/ML INJ IV PUSH PRN (01:27)
[2017-10-23] MEDS: LACTATED RINGER'S 1000 ML INJ 1,000 ML IV SCH ×3 (02:36→23:53)
[2017-10-23] MEDS: ACETAMINOPHEN/HYDROcodone 325 MG/10 MG TAB PO PRN ×6 (02:58→22:05)
[2017-10-23] MEDS: LORazepam 1 MG TAB PO PRN ×4 (06:01→23:36)
[2017-10-23 06:14] LABS: HEMOGLOBIN 5.9 GM/DL (13.0-17.0)
[2017-10-23 06:15] LABS: HEMATOCRIT 19.3 % (39.0-51.0)
--- NOTE | 2017-10-23 06:38 | PD.ORT.PN ---
Subjective Subjective Remarks POD 1 s/p removal of exfix with ORIF of left medial tibial plateau reports significant pain overnight. reports that not controlled Objective Vitals Vital Signs Date Time Temp Pulse Resp B/P (MAP) Pulse Ox O2 Delivery O2 Flow Rate FiO2 10/23/17 04:23 110 10/23/17 03:25 98.3 105 18 127/68 (87) 95 10/22/17 23:48 112 10/22/17 23:10 97.1 115 18 132/78 (96) 95 10/22/17 20:00 97.9 127 18 125/69 (87) 96 10/22/17 19:32 124 10/22/17 18:24 128 10/22/17 16:00 97.4 110 18 123/79 (94) 100 10/22/17 13:00 97.6 110 16 155/67 (96) 98 10/22/17 12:30 115 14 133/72 (92) 100 Nasal Cannula 2 10/22/17 12:00 107 14 138/73 (94) 100 Nasal Cannula 2 10/22/17 11:45 102 14 128/68 (88) 95 Nasal Cannula 2 10/22/17 11:30 100 14 121/66 (84) 100 Nasal Cannula 2 10/22/17 11:15 100 14 112/78 (89) 95 Nasal Cannula 2 10/22/17 11:00 105 14 133/61 (85) 95 Nasal Cannula 2 10/22/17 07:27 96.8 99 18 143/69 (93) 97 I/O 10/22/17 10/22/17 10/22/17 10/23/17 10/23/17 10/23/17 07:00 15:00 23:00 07:00 15:00 23:00 Intake Total 480 ml 1440 ml 465 ml 300 ml Output Total 575 ml 1405 ml 700 ml Balance -95 ml 35 ml -235 ml 300 ml Intake Oral 480 ml 240 ml IV Total 465 ml 300 ml Other 1200 ml Output Urine Total 575 ml 1400 ml 700 ml Estimated Blood Loss 5 ml # Voids 2 # Bowel Movements 0 0 Result Diagram: 10/23/17 0416 Imaging Last 24 hours Impressions Tibia/Fibula X-Ray 10/16/17 0050 Signed Impressions: Service Date/Time: Monday, October 16, 2017 01:06 - CONCLUSION: Proximal tibial fractures as detailed above. Steve Funes Jr., MD Lower Extremity CT 10/16/17 0000 Signed Impressions: Service Date/Time: Monday, October 16, 2017 05:54 - CONCLUSION: Comminuted proximal tibial fracture as detailed above. Steve Funes Jr., MD Objective Remarks Left lower extremity:dressings clean and dry. intact. NVI. +CKS. Assessment & Plan Assessment and Plan Left Tibial Plateau Fx s/p removal of exfix with ORIF - POD 1 -NWB -elevate -CKS -DC morphine and start Dilaudid IV -toradol 15mg Q6H x 6 doses -daily dressing changes POD 2 -stat redraw of H/H for critical hemoglobin Agusto Encinas/Legal Process Specialist SIMON Oct 23, 2017 06:37
[2017-10-23] MEDS ORDERED: HYDROmorphone HCL PF 2 MG/ML VIAL IV PUSH PRN (06:45)
[2017-10-23] MEDS: MAGNESIUM HYDROXIDE SUSP 30 ML CUP PO SCH ×2 (08:34→20:40)
[2017-10-23] MEDS: DOCUSATE SODIUM 100 MG/10 ML UDC PO SCH ×2 (08:34→20:40)
[2017-10-23] MEDS: PANTOPRAZOLE SOD 40 MG DELAYED RELEASE TAB PO SCH (08:35)
[2017-10-23] MEDS: DOCUSATE SODIUM 50 MG/SENNA 8.6 MG TAB PO SCH ×2 (08:35→20:40)
[2017-10-23] MEDS: HYDROCHLOROTHIAZIDE 12.5 MG CAP PO SCH (08:36)
[2017-10-23] MEDS: CHOLECALCIFEROL (VIT D3) 1000 UNIT TAB PO SCH (08:37)
[2017-10-23] MEDS: CITALOPRAM HYDROBROMIDE 20 MG TAB PO SCH (08:37)
[2017-10-23] MEDS: LISINOPRIL 10 MG TAB PO SCH (08:38)
[2017-10-23] MEDS: SODIUM CHLORIDE 0.9% FLUSH 10 ML FLUSH IV FLUSH SCH ×2 (08:38→21:00)
[2017-10-23] MEDS: KETOROLAC TROMETHAMINE 60 MG/2 ML (IM) VIAL IM SCH ×3 (08:43→17:54)
[2017-10-23 08:58] LABS: HEMATOCRIT 20.2 % (39.0-51.0); HEMOGLOBIN 6.2 GM/DL (13.0-17.0)
[2017-10-23] MEDS: ENOXAPARIN SODIUM 30 MG/0.3 ML SYRINGE SQ SCH ×2 (11:02→21:29)
[2017-10-23] MEDS: VANCOMYCIN INJ 1,000 MG in SODIUM CHLOR 0.9% 250 ML INJ 250 ML IV SCH (11:03)
[2017-10-23 11:54] LABS: ALBUMIN 2.6 GM/DL (3.4-5.0); AST (GOT) 106 U/L (15-37); BLOOD UREA NITROGEN 11 MG/DL (7-18); CALCIUM 8.5 MG/DL (8.5-10.1); CHLORIDE 105 MEQ/L (98-107); CREATININE 1.06 MG/DL (0.60-1.30); GLOMERULAR FILTRATION RATE 72 ML/MIN (>89); GLUCOSE,RANDOM 119 MG/DL (74-106); MAGNESIUM 2.4 MG/DL (1.5-2.5); SODIUM (NA) 140 MEQ/L (136-145)
[2017-10-23 11:56] LABS: ALT (GPT) 143 U/L (12-78); PHOSPHORUS 2.3 MG/DL (2.5-4.9)
[2017-10-23 11:58] LABS: ALKALINE PHOSPHATASE 112 U/L (45-117); TOTAL BILIRUBIN ADULT 0.5 MG/DL (0.2-1.0); TOTAL PROTEIN 6.3 GM/DL (6.4-8.2)
--- NOTE | 2017-10-23 19:07 | HHI.PR ---
Subjective Remarks Patient states felt very tired earlier Hemoglobin dropped to 6.2 Denies cp/sob Denies abdominal pain, nausea or vomiting Objective Vitals Vital Signs Date Time Temp Pulse Resp B/P (MAP) Pulse Ox O2 Delivery O2 Flow Rate FiO2 10/23/17 17:15 98.7 98 20 136/70 98 10/23/17 16:56 97.9 100 18 120/71 94 10/23/17 11:23 97.0 100 18 126/66 (86) 97 10/23/17 07:50 96.6 108 18 136/69 (91) 95 10/23/17 04:23 110 10/23/17 03:25 98.3 105 18 127/68 (87) 95 10/22/17 23:48 112 10/22/17 23:10 97.1 115 18 132/78 (96) 95 10/22/17 20:00 97.9 127 18 125/69 (87) 96 10/22/17 19:32 124 I/O 10/22/17 10/22/17 10/22/17 10/23/17 10/23/17 10/23/17 07:00 15:00 23:00 07:00 15:00 23:00 Intake Total 480 ml 1440 ml 465 ml 300 ml 1680 ml 5 ml Output Total 575 ml 1405 ml 700 ml 750 ml Balance -95 ml 35 ml -235 ml 300 ml 930 ml 5 ml Intake Oral 480 ml 240 ml 1680 ml IV Total 465 ml 300 ml Blood Product IV Normal Saline Flush 5 ml Other 1200 ml Output Urine Total 575 ml 1400 ml 700 ml 750 ml Estimated Blood Loss 5 ml # Voids 2 2 # Bowel Movements 0 0 0 Result Diagram: 10/23/17 0832 10/23/17 1022 Imaging Last 72 hours Impressions Knee X-Ray 10/22/17 0000 Signed Impressions: Service Date/Time: Sunday, October 22, 2017 10:13 - CONCLUSION: 1. Excellent alignment of the patient's tibial fracture post plating. Gerry Nicholson MD Objective Remarks AAox3 nad clear lungs BL S1S2 RRR soft abdomenb Left lower extremity with good palpable pedal pulse on brace with clean dressing. Procedures Closed reduction left tibial plateau fracture, external fixation left leg A/P Problem List: (1) Tibial plateau fracture, left ICD Code: S82.142A - Displaced bicondylar fracture of left tibia, initial encounter for closed fracture Status: Acute (2) Anxiety ICD Code: F41.9 - Anxiety disorder, unspecified Assessment and Plan SP left tibial plateau fracture repair, with external fixator placed continue pain control management as per orthopedic surgery recs Swelling should be improved by Sunday for surgery. Authorization pending for discharge to [facility] today. Plan is to follow-up in orthopedic office on Sunday with Dr. Romo to evaluate swelling. If swelling is appropriate and then surgery will be planned.. He will need to continue on Lovenox through Sunday and then hold on Sunday 10/22 sp ORIF of Left tibial plateau fracture and removal of internal fixator. Management as per orthopedic surgery. LOC/syncope - no recurrence, likely from dehydration, may benefit from holter upon discharge. Hypertension -Stable - continue home antihypertensive medications. Acute Post op anemia Hemoglobin dropped t 6.2 after surgical procedure. no other signs of bleeding. Ordered transfusion of 2 units PRBC earlier today Problem Qualifiers (1) Tibial plateau fracture, left: Qualified Codes: S82.142A - Displaced bicondylar fracture of left tibia, initial encounter for closed fracture Robert Tovar MD Oct 23, 2017 19:07
[2017-10-24] VITALS (8 sets, daily range): BP systolic 117–150; BP diastolic 62–88; PULSE 77–99; RESP 16–19; TEMP 96–99.6; O2SAT 95–100
[2017-10-24] MEDS: ACETAMINOPHEN/HYDROcodone 325 MG/10 MG TAB PO PRN ×6 (01:50→22:02)
[2017-10-24] MEDS: KETOROLAC TROMETHAMINE 60 MG/2 ML (IM) VIAL IM SCH ×3 (05:57→12:00)
[2017-10-24] MEDS: LORazepam 1 MG TAB PO PRN ×2 (06:02→23:36)
--- NOTE | 2017-10-24 06:31 | PD.ORT.PN ---
Subjective Subjective Remarks Resting comfortably with no new complaints Objective Vitals Vital Signs Date Time Temp Pulse Resp B/P (MAP) Pulse Ox O2 Delivery O2 Flow Rate FiO2 10/24/17 04:12 77 10/24/17 02:50 18 10/24/17 02:10 97.5 90 18 136/82 95 10/24/17 01:00 20 10/23/17 23:43 101 10/23/17 23:29 99.0 96 19 122/76 99 10/23/17 23:06 99.8 105 18 136/76 99 10/23/17 20:43 98.7 97 19 133/74 98 10/23/17 19:45 97 10/23/17 17:15 98.7 98 20 136/70 98 10/23/17 16:56 97.9 100 18 120/71 94 10/23/17 11:23 97.0 100 18 126/66 (86) 97 10/23/17 08:30 108 10/23/17 07:50 96.6 108 18 136/69 (91) 95 I/O 10/23/17 10/23/17 10/23/17 10/24/17 10/24/17 10/24/17 07:00 15:00 23:00 07:00 15:00 23:00 Intake Total 300 ml 1980 ml 465 ml 1140 ml Output Total 750 ml 1000 ml Balance 300 ml 1230 ml 465 ml 140 ml Intake Oral 1680 ml 720 ml IV Total 300 ml 300 ml 50 ml Packed Cells 400 ml 400 ml Blood Product IV Normal Saline Flush 15 ml 20 ml Output Urine Total 750 ml 1000 ml # Voids 2 # Bowel Movements 0 0 Result Diagram: 10/23/17 0832 10/23/17 1022 Imaging Last 24 hours Impressions Tibia/Fibula X-Ray 10/16/17 0050 Signed Impressions: Service Date/Time: Monday, October 16, 2017 01:06 - CONCLUSION: Proximal tibial fractures as detailed above. Steve Funes Jr., MD Lower Extremity CT 10/16/17 0000 Signed Impressions: Service Date/Time: Monday, October 16, 2017 05:54 - CONCLUSION: Comminuted proximal tibial fracture as detailed above. Steve Funes Jr., MD Objective Remarks Left lower extremity:dressings clean and dry. intact. NVI. +CKS. Assessment & Plan Assessment and Plan Left Tibial Plateau Fx s/p removal of exfix with ORIF - POD 2 -NWB -elevate -CKS -DC morphine and start Dilaudid IV -toradol 15mg Q6H x 3 doses -daily dressing changes -stat redraw of H/H for critical hemoglobin Plan for DC to rehabilitation once medically stable Follow-up Dr. Gee or [place] in 2 weeks Andrés Bernal Jr. Oct 24, 2017 06:31
[2017-10-24] MEDS: CHOLECALCIFEROL (VIT D3) 1000 UNIT TAB PO SCH (08:57)
[2017-10-24] MEDS: ENOXAPARIN SODIUM 30 MG/0.3 ML SYRINGE SQ SCH ×2 (08:57→21:39)
[2017-10-24] MEDS: LISINOPRIL 10 MG TAB PO SCH (08:57)
[2017-10-24] MEDS: HYDROCHLOROTHIAZIDE 12.5 MG CAP PO SCH (08:57)
[2017-10-24] MEDS: DOCUSATE SODIUM 50 MG/SENNA 8.6 MG TAB PO SCH ×2 (08:57→21:39)
[2017-10-24] MEDS: CITALOPRAM HYDROBROMIDE 20 MG TAB PO SCH (08:57)
[2017-10-24] MEDS: PANTOPRAZOLE SOD 40 MG DELAYED RELEASE TAB PO SCH (08:57)
[2017-10-24] MEDS: DOCUSATE SODIUM 100 MG/10 ML UDC PO SCH ×2 (08:58→21:39)
[2017-10-24] MEDS: MAGNESIUM HYDROXIDE SUSP 30 ML CUP PO SCH ×2 (09:00→21:39)
[2017-10-24] MEDS: LACTATED RINGER'S 1000 ML INJ 1,000 ML IV SCH (12:23)
[2017-10-24 14:03] LABS: HEMATOCRIT 26.5 % (39.0-51.0); HEMOGLOBIN 8.5 GM/DL (13.0-17.0); MEAN CELL VOLUME 70.5 FL (80.0-100.0); MEAN CORPUSCULAR HEMOGLOBIN 22.6 PG (27.0-34.0); MEAN CORPUSCULAR HGB CONC 32.1 % (32.0-36.0); MEAN PLATELET VOLUME 8.4 FL (7.0-11.0); PLATELET COUNT 270 TH/MM3 (150-450); RED BLOOD COUNT 3.77 MIL/MM3 (4.50-5.90); RED CELL DISTRIBUTION WIDTH 23.2 % (11.6-17.2); WHITE BLOOD COUNT 7.6 TH/MM3 (4.0-11.0)
--- NOTE | 2017-10-24 18:25 | HHI.PR ---
Subjective Remarks Deferred entry, the patient was seen earlier at 12:45 p.m. The patient denies chest pain or shortness of breath. Pain controlled Objective Vitals Vital Signs Date Time Temp Pulse Resp B/P (MAP) Pulse Ox O2 Delivery O2 Flow Rate FiO2 10/24/17 16:42 97.0 99 18 150/75 (100) 95 10/24/17 11:38 96.0 88 17 117/62 (80) 96 10/24/17 08:00 96.6 78 19 128/71 (90) 97 10/24/17 04:12 77 10/24/17 02:50 18 10/24/17 02:10 97.5 90 18 136/82 95 10/24/17 01:00 20 10/23/17 23:43 101 10/23/17 23:29 99.0 96 19 122/76 99 10/23/17 23:06 99.8 105 18 136/76 99 10/23/17 20:43 98.7 97 19 133/74 98 10/23/17 19:45 97 I/O 10/23/17 10/23/17 10/23/17 10/24/17 10/24/17 10/24/17 07:00 15:00 23:00 07:00 15:00 23:00 Intake Total 300 ml 1980 ml 465 ml 1140 ml 1100 ml Output Total 750 ml 1000 ml 2000 ml Balance 300 ml 1230 ml 465 ml 140 ml -900 ml Intake Oral 1680 ml 720 ml 1100 ml IV Total 300 ml 300 ml 50 ml Packed Cells 400 ml 400 ml Blood Product IV Normal Saline Flush 15 ml 20 ml Output Urine Total 750 ml 1000 ml 2000 ml # Voids 2 # Bowel Movements 0 0 1 Result Diagram: 10/24/17 1349 10/23/17 1022 Imaging Last Impressions Knee X-Ray 10/22/17 0000 Signed Impressions: Service Date/Time: Sunday, October 22, 2017 10:13 - CONCLUSION: 1. Excellent alignment of the patient's tibial fracture post plating. Gerry Nicholson MD Tibia/Fibula X-Ray 10/16/17 0050 Signed Impressions: Service Date/Time: Monday, October 16, 2017 01:06 - CONCLUSION: Proximal tibial fractures as detailed above. Steve Funes Jr., MD Lower Extremity CT 10/16/17 0000 Signed Impressions: Service Date/Time: Monday, October 16, 2017 05:54 - CONCLUSION: Comminuted proximal tibial fracture as detailed above. Steve Funes Jr., MD Maxillofacial CT 10/15/17 0000 Signed Impressions: Service Date/Time: Sunday, October 15, 2017 23:44 - CONCLUSION: 1. Frontal soft tissue swelling. 2. No fractures. Steve Funes Jr., MD Head CT 10/15/17 0000 Signed Impressions: Service Date/Time: Sunday, October 15, 2017 23:44 - CONCLUSION: No acute disease. Steve Funes Jr., MD Cervical Spine CT 10/15/17 0000 Signed Impressions: Service Date/Time: Sunday, October 15, 2017 23:44 - CONCLUSION: 1. No fracture or dislocation. 2. Degenerative changes. Steve Funes Jr., MD Objective Remarks AAox3 nad clear lungs BL S1S2 RRR soft abdomenb Left lower extremity with good palpable pedal pulse on brace with clean dressing. Procedures Closed reduction left tibial plateau fracture, external fixation left leg Medications and IVs Current Medications Medications (Trade) Dose Ordered Sig/Kyra Route Start Time Stop Time Status Last Admin (NS Flush) 2 ml UNSCH PRN IV FLUSH 10/16/17 02:45 (NS Flush) 2 ml BID IV FLUSH 10/16/17 09:00 10/23/17 08:38 (Narcan Inj) 0.4 mg UNSCH PRN IV PUSH 10/16/17 02:45 (Romazicon Inj) 0.2 mg Q1M PRN IV PUSH 10/16/17 10:15 (Ativan) 1 mg Q4H PRN PO 10/16/17 10:15 10/22/17 04:38 (Ativan Inj) 1 mg Q4H PRN IV PUSH 10/16/17 10:15 (Ativan) 2 mg Q2H PRN PO 10/16/17 10:15 (Ativan Inj) 2 mg Q2H PRN IV PUSH 10/16/17 11:00 (Ativan Inj) 2 mg Q1H PRN IV PUSH 10/16/17 11:00 (Ativan Inj) 2 mg Q15M PRN IV PUSH 10/16/17 10:15 (Ativan) 1 mg Q6H PRN PO 10/16/17 11:00 10/24/17 06:02 (Vasotec Inj) 1.25 mg Q6H PRN IV PUSH 10/16/17 11:00 (Suzanna-Colace) 1 tab BID PO 10/16/17 21:00 10/24/17 08:57 ([place] 10-325 Mg) 1 tab Q3H PRN PO 10/16/17 14:45 10/24/17 14:25 (Zofran Inj) 4 mg Q4H PRN IVP 10/16/17 14:45 (Benadryl) 25 mg Q6H PRN PO 10/16/17 14:45 (Protonix) 40 mg DAILY PO 10/17/17 17:00 10/24/17 08:57 (Colace Liq) 100 mg BID PO 10/19/17 09:00 10/23/17 20:40 (Milk Of Magnesia Liq) 30 ml BID PO 10/19/17 09:00 10/24/17 09:00 (Senokot) 17.2 mg Q12H PRN PO 10/19/17 01:45 10/19/17 20:36 (Lactulose Liq) 30 ml Q24H PRN PO 10/19/17 01:45 (Dulcolax Supp) 10 mg Q24H PRN RECTAL 10/19/17 01:45 (CeleXA) 10 mg DAILY PO 10/21/17 09:00 10/24/17 08:57 (Prinivil) 10 mg DAILY PO 10/21/17 09:00 10/24/17 08:57 (Microzide) 12.5 mg DAILY PO 10/21/17 09:00 10/24/17 08:57 Lactated Ringer's 1,000 ml @ 30 mls/hr Q24H PRN IV 10/21/17 22:45 10/24/17 22:44 Sodium Chloride 500 ml @ 30 mls/hr [id number] PRN IV 10/21/17 22:45 10/24/17 22:44 (Lopressor) 25 mg PROJECT ENG PRN PO 10/21/17 22:45 10/24/17 22:44 (Betadine 5% Antisepsis Kit) 1 applic PROJECT ENG PRN EACH NARE 10/21/17 22:45 10/24/17 22:44 (Chlorhexidine 2% Cloth) 3 pack PROJECT ENG PRN TOPICAL 10/21/17 22:45 10/24/17 22:44 Lactated Ringer's 1,000 ml @ 80 mls/hr [id number] IV 10/22/17 10:23 10/23/17 02:36 (Lovenox Inj) 30 mg Q12H SQ 10/23/17 10:00 10/24/17 08:57 (Vitamin D3) 1,000 units DAILY PO 10/23/17 09:00 10/24/17 08:57 (Drisdol) 50,000 units Q7D PO 10/22/17 13:00 10/22/17 14:07 (Dilaudid Pf Inj) 1 mg Q3H PRN IV PUSH 10/23/17 06:45 A/P Problem List: (1) Tibial plateau fracture, left ICD Code: S82.142A - Displaced bicondylar fracture of left tibia, initial encounter for closed fracture Status: Acute (2) Anxiety ICD Code: F41.9 - Anxiety disorder, unspecified Assessment and Plan SP left tibial plateau fracture repair, with external fixator placed continue pain control management as per orthopedic surgery recs Swelling should be improved by Sunday for surgery. Authorization pending for discharge to [facility] today. Plan is to follow-up in orthopedic office on Sunday with Dr. Romo to evaluate swelling. If swelling is appropriate and then surgery will be planned.. He will need to continue on Lovenox through Sunday and then hold on Sunday 10/22 sp ORIF of Left tibial plateau fracture and removal of internal fixator. Management as per orthopedic surgery. LOC/syncope - no recurrence, likely from dehydration, may benefit from holter upon discharge. Hypertension -Stable - continue home antihypertensive medications. Acute Post op anemia Hemoglobin dropped t 6.2 after surgical procedure. no other signs of bleeding. Ordered transfusion of 2 units PRBC earlier today 10/24 status post infusion of 2 units of packed RBCs. Hemoglobin still pending. Patient states that they could not draw blood from him. Will await for hemoglobin and if stable will discharge in the morning. Discharge Planning DC in a.m. if hemoglobin stable. Problem Qualifiers (1) Tibial plateau fracture, left: Qualified Codes: S82.142A - Displaced bicondylar fracture of left tibia, initial encounter for closed fracture Robert Tovar MD 21, 2018 18:25
[2017-10-24] MEDS: SODIUM CHLORIDE 0.9% FLUSH 10 ML FLUSH IV FLUSH SCH ×2 (21:00→21:38)
[2017-10-25] VITALS (15 sets, daily range): BP systolic 126–139; BP diastolic 67–79; PULSE 68–100; RESP 16–22; TEMP 96–98.3; O2SAT 96–100
[2017-10-25] MEDS: LACTATED RINGER'S 1000 ML INJ 1,000 ML IV SCH ×3 (00:53→19:43)
[2017-10-25] MEDS: ACETAMINOPHEN/HYDROcodone 325 MG/10 MG TAB PO PRN ×6 (02:19→21:06)
[2017-10-25] MEDS: LORazepam 1 MG TAB PO PRN ×2 (05:47→17:43)
--- NOTE | 2017-10-25 06:32 | PD.ORT.PN ---
Subjective Subjective Remarks Resting comfortably with no new complaints Objective Vitals Vital Signs Date Time Temp Pulse Resp B/P (MAP) Pulse Ox O2 Delivery O2 Flow Rate FiO2 10/25/17 06:08 98.3 85 16 127/79 (95) 96 10/25/17 00:00 88 10/24/17 23:39 99.6 91 16 139/75 (96) 98 10/24/17 22:02 Room Air 10/24/17 20:00 87 10/24/17 16:42 97.0 99 18 150/75 (100) 95 10/24/17 12:00 99.3 81 18 142/88 (106) 100 10/24/17 11:38 96.0 88 17 117/62 (80) 96 10/24/17 08:00 99.6 91 16 139/75 (96) 98 10/24/17 08:00 96.6 78 19 128/71 (90) 97 I/O 10/24/17 10/24/17 10/24/17 10/25/17 10/25/17 10/25/17 07:00 15:00 23:00 07:00 15:00 23:00 Intake Total 1140 ml 1100 ml Output Total 1000 ml 2000 ml Balance 140 ml -900 ml Intake Oral 720 ml 1100 ml Packed Cells 400 ml Blood Product IV Normal Saline Flush 20 ml Output Urine Total 1000 ml 2000 ml # Bowel Movements 0 1 Result Diagram: 10/24/17 1349 10/23/17 1022 Imaging Last 24 hours Impressions Tibia/Fibula X-Ray 10/16/17 0050 Signed Impressions: Service Date/Time: Monday, October 16, 2017 01:06 - CONCLUSION: Proximal tibial fractures as detailed above. Steve Funes Jr., MD Lower Extremity CT 10/16/17 0000 Signed Impressions: Service Date/Time: Monday, October 16, 2017 05:54 - CONCLUSION: Comminuted proximal tibial fracture as detailed above. Steve Funes Jr., MD Objective Remarks Left lower extremity:dressings clean and dry. intact. NVI. +CKS. Assessment & Plan Assessment and Plan Left Tibial Plateau Fx s/p removal of exfix with ORIF - POD 3 -NWB -elevate -CKS -DC morphine and start Dilaudid IV -daily dressing changes -stat redraw of H/H for critical hemoglobin Plan for DC to rehabilitation once medically stable Follow-up Dr. Gee or [place] in 2 weeks Andrés Bernal Jr. Oct 25, 2017 06:32
[2017-10-25 06:55] LABS: HEMATOCRIT 25.3 % (39.0-51.0); HEMOGLOBIN 8.3 GM/DL (13.0-17.0); MEAN CELL VOLUME 70.5 FL (80.0-100.0); MEAN CORPUSCULAR HGB CONC 32.6 % (32.0-36.0); PLATELET COUNT 264 TH/MM3 (150-450); RED BLOOD COUNT 3.59 MIL/MM3 (4.50-5.90); RED CELL DISTRIBUTION WIDTH 23.8 % (11.6-17.2); WHITE BLOOD COUNT 7.4 TH/MM3 (4.0-11.0)
[2017-10-25 07:13] LABS: BICARBONATE 28.7 MEQ/L (21.0-32.0); CALCIUM 8.2 MG/DL (8.5-10.1); CREATININE 0.86 MG/DL (0.60-1.30)
[2017-10-25] MEDS: LISINOPRIL 10 MG TAB PO SCH (08:05)
[2017-10-25] MEDS: CHOLECALCIFEROL (VIT D3) 1000 UNIT TAB PO SCH (08:06)
[2017-10-25] MEDS: HYDROCHLOROTHIAZIDE 12.5 MG CAP PO SCH (08:06)
[2017-10-25] MEDS: PANTOPRAZOLE SOD 40 MG DELAYED RELEASE TAB PO SCH (08:06)
[2017-10-25] MEDS: DOCUSATE SODIUM 50 MG/SENNA 8.6 MG TAB PO SCH ×2 (08:06→19:53)
[2017-10-25] MEDS: SODIUM CHLORIDE 0.9% FLUSH 10 ML FLUSH IV FLUSH SCH ×2 (08:06→19:53)
[2017-10-25] MEDS: MAGNESIUM HYDROXIDE SUSP 30 ML CUP PO SCH ×2 (08:06→19:53)
[2017-10-25] MEDS: DOCUSATE SODIUM 100 MG/10 ML UDC PO SCH ×2 (08:06→19:53)
[2017-10-25] MEDS: CITALOPRAM HYDROBROMIDE 20 MG TAB PO SCH (08:06)
[2017-10-25] MEDS: SENNOSIDES 8.6 MG TAB PO PRN (08:07)
[2017-10-25] MEDS: ENOXAPARIN SODIUM 30 MG/0.3 ML SYRINGE SQ SCH ×2 (11:04→21:06)
[2017-10-25] MEDS ORDERED: PROT40TA PO (12:37)
[2017-10-25] MEDS: FERROUS SULFATE 325 MG (65 MG ELEMENTAL IRON) TAB PO SCH ×2 (12:49→19:51)
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
[2017-10-26] VITALS (7 sets, daily range): BP systolic 120–140; BP diastolic 60–81; PULSE 70–102; RESP 16–20; TEMP 95.8–98.4; O2SAT 97–99
[2017-10-26] MEDS ORDERED: BACITRACIN TOP OINT 15 GM TUBE TOPICAL PRN (00:15)
[2017-10-26] MEDS: ACETAMINOPHEN/HYDROcodone 325 MG/10 MG TAB PO PRN ×8 (00:31→23:28)
[2017-10-26] MEDS: HYDROCHLOROTHIAZIDE 12.5 MG CAP PO SCH (08:06)
[2017-10-26] MEDS: CHOLECALCIFEROL (VIT D3) 1000 UNIT TAB PO SCH (08:06)
[2017-10-26] MEDS: LISINOPRIL 10 MG TAB PO SCH (08:06)
[2017-10-26] MEDS: PANTOPRAZOLE SOD 40 MG DELAYED RELEASE TAB PO SCH (08:06)
[2017-10-26] MEDS: FERROUS SULFATE 325 MG (65 MG ELEMENTAL IRON) TAB PO SCH ×2 (08:06→20:29)
[2017-10-26] MEDS: CITALOPRAM HYDROBROMIDE 20 MG TAB PO SCH (08:06)
[2017-10-26] MEDS: DOCUSATE SODIUM 50 MG/SENNA 8.6 MG TAB PO SCH ×2 (08:06→20:29)
[2017-10-26] MEDS: ENOXAPARIN SODIUM 30 MG/0.3 ML SYRINGE SQ SCH ×2 (08:12→20:31)
[2017-10-26] MEDS: MAGNESIUM HYDROXIDE SUSP 30 ML CUP PO SCH ×2 (09:00→20:31)
[2017-10-26] MEDS: SODIUM CHLORIDE 0.9% FLUSH 10 ML FLUSH IV FLUSH SCH ×2 (09:00→20:31)
[2017-10-26] MEDS: DOCUSATE SODIUM 100 MG/10 ML UDC PO SCH ×2 (09:00→20:31)
[2017-10-26] MEDS: LORazepam 1 MG TAB PO PRN ×2 (09:22→16:47)
[2017-10-26] MEDS: LACTATED RINGER'S 1000 ML INJ 1,000 ML IV SCH ×2 (14:23→20:31)
--- NOTE | 2017-10-26 18:13 | HHI.PR ---
Subjective Remarks The patient states that his pain medication wears before the time except for the next dose. Denies fevers or chills. Denies diarrhea, abdominal pain, nausea vomiting. Denies chest pain or shortness of breath. Objective Vitals Vital Signs Date Time Temp Pulse Resp B/P (MAP) Pulse Ox O2 Delivery O2 Flow Rate FiO2 10/26/17 16:00 97.8 102 17 140/72 (94) 97 10/26/17 12:00 97.2 87 16 120/69 (86) 97 10/26/17 08:00 95.8 70 16 130/81 (97) 99 10/26/17 04:13 79 10/26/17 04:00 97.2 78 20 127/73 (91) 99 10/26/17 00:00 98.4 84 20 126/74 (91) 97 10/25/17 23:59 100 10/25/17 20:45 87 10/25/17 20:00 97.8 89 22 139/67 (91) 99 10/25/17 19:05 85 10/25/17 18:50 80 I/O 10/25/17 10/25/17 10/25/17 10/26/17 10/26/17 10/26/17 07:00 15:00 23:00 07:00 15:00 23:00 Intake Total 550 ml 360 ml Output Total 200 ml 620 ml Balance -200 ml -70 ml 360 ml Intake Oral 550 ml 360 ml Output Urine Total 200 ml 620 ml # Voids 2 # Bowel Movements 2 Result Diagram: 10/25/17 0541 10/25/17 0541 Objective Remarks AAox3 nad clear lungs BL S1S2 RRR soft abdomenb Left lower extremity with good palpable pedal pulse on brace with clean dressing. Procedures Closed reduction left tibial plateau fracture, external fixation left leg A/P Problem List: (1) Tibial plateau fracture, left ICD Code: S82.142A - Displaced bicondylar fracture of left tibia, initial encounter for closed fracture Status: Acute (2) Anxiety ICD Code: F41.9 - Anxiety disorder, unspecified Assessment and Plan SP left tibial plateau fracture repair, with external fixator placed continue pain control management as per orthopedic surgery recs Swelling should be improved by Sunday for surgery. Authorization pending for discharge to [facility] today. Plan is to follow-up in orthopedic office on Sunday with Dr. Romo to evaluate swelling. If swelling is appropriate and then surgery will be planned.. He will need to continue on Lovenox through Sunday and then hold on Sunday sp ORIF of Left tibial plateau fracture and removal of internal fixator. Management as per orthopedic surgery. LOC/syncope - no recurrence, likely from dehydration, may benefit from holter upon discharge. Hypertension -Stable - continue home antihypertensive medications. Acute Post op anemia Hemoglobin dropped t 6.2 after surgical procedure. no other signs of bleeding. Status post infusion of 2 units of packed red blood cells with appropriate hemoglobin response with hemoglobin trending up to 8.5. Patient complains of darker stools the previous days. Offered a gastrology consultation for possible EGD/colonoscopy while inpatient, however patient refused. I will refer to gastroenterology as an outpatient. Discharge Planning DC in a.m. once [facility] arranged. Problem Qualifiers (1) Tibial plateau fracture, left: Qualified Codes: S82.142A - Displaced bicondylar fracture of left tibia, initial encounter for closed fracture Robert Tovar MD Oct 26, 2017 18:13
[2017-10-27] VITALS (10 sets, daily range): BP systolic 121–137; BP diastolic 63–75; PULSE 18–118; RESP 16–18; TEMP 97.3–98.2; O2SAT 94–99
[2017-10-27] MEDS: LORazepam 1 MG TAB PO PRN ×3 (04:06→18:33)
[2017-10-27] MEDS: ACETAMINOPHEN/HYDROcodone 325 MG/10 MG TAB PO PRN ×5 (04:06→22:45)
[2017-10-27] MEDS: DOCUSATE SODIUM 50 MG/SENNA 8.6 MG TAB PO SCH ×2 (09:00→21:00)
[2017-10-27] MEDS: DOCUSATE SODIUM 100 MG/10 ML UDC PO SCH ×2 (09:00→21:36)
[2017-10-27] MEDS: MAGNESIUM HYDROXIDE SUSP 30 ML CUP PO SCH ×2 (09:00→21:36)
[2017-10-27] MEDS: FERROUS SULFATE 325 MG (65 MG ELEMENTAL IRON) TAB PO SCH ×2 (09:00→21:34)
[2017-10-27] MEDS: CHOLECALCIFEROL (VIT D3) 1000 UNIT TAB PO SCH (09:03)
[2017-10-27] MEDS: HYDROCHLOROTHIAZIDE 12.5 MG CAP PO SCH (09:03)
[2017-10-27] MEDS: PANTOPRAZOLE SOD 40 MG DELAYED RELEASE TAB PO SCH (09:03)
[2017-10-27] MEDS: LISINOPRIL 10 MG TAB PO SCH (09:03)
[2017-10-27] MEDS: CITALOPRAM HYDROBROMIDE 20 MG TAB PO SCH (09:03)
[2017-10-27] MEDS: ENOXAPARIN SODIUM 30 MG/0.3 ML SYRINGE SQ SCH ×2 (09:07→21:34)
[2017-10-27] MEDS: SODIUM CHLORIDE 0.9% FLUSH 10 ML FLUSH IV FLUSH SCH ×2 (09:14→21:34)
--- NOTE | 2017-10-27 15:14 | HHI.PR ---
Subjective Remarks Pain controlled Afebrile Denies cp/sob eager to go home. Objective Vitals Vital Signs Date Time Temp Pulse Resp B/P (MAP) Pulse Ox O2 Delivery O2 Flow Rate FiO2 10/27/17 13:10 18 10/27/17 12:00 97.8 86 16 134/68 (90) 99 10/27/17 08:00 97.3 72 18 132/75 (94) 98 10/27/17 04:15 97.3 18 18 121/74 (90) 98 10/27/17 04:12 77 10/27/17 00:01 85 10/27/17 00:00 98.2 83 18 137/63 (87) 98 10/26/17 20:00 98.4 91 18 137/60 (85) 98 10/26/17 20:00 86 10/26/17 16:00 97.8 102 17 140/72 (94) 97 I/O 10/26/17 10/26/17 10/26/17 10/27/17 10/27/17 10/27/17 07:00 15:00 23:00 07:00 15:00 23:00 Intake Total 360 ml 800 ml 480 ml 840 ml Output Total 800 ml 650 ml 750 ml Balance 360 ml 0 ml -170 ml 90 ml Intake Oral 360 ml 800 ml 480 ml 840 ml Output Urine Total 800 ml 650 ml 750 ml # Voids 2 # Bowel Movements 2 0 0 1 Result Diagram: 10/25/17 0541 10/25/17 0541 Imaging Last Impressions Knee X-Ray 10/22/17 0000 Signed Impressions: Service Date/Time: Sunday, October 22, 2017 10:13 - CONCLUSION: 1. Excellent alignment of the patient's tibial fracture post plating. Gerry Nicholson MD Tibia/Fibula X-Ray 10/16/17 0050 Signed Impressions: Service Date/Time: Monday, October 16, 2017 01:06 - CONCLUSION: Proximal tibial fractures as detailed above. Steve Funes Jr., MD Lower Extremity CT 10/16/17 0000 Signed Impressions: Service Date/Time: Monday, October 16, 2017 05:54 - CONCLUSION: Comminuted proximal tibial fracture as detailed above. Steve Funes Jr., MD Maxillofacial CT 10/15/17 0000 Signed Impressions: Service Date/Time: Sunday, October 15, 2017 23:44 - CONCLUSION: 1. Frontal soft tissue swelling. 2. No fractures. Steve Funes Jr., MD Head CT 10/15/17 0000 Signed Impressions: Service Date/Time: Sunday, October 15, 2017 23:44 - CONCLUSION: No acute disease. Steve Funes Jr., MD Cervical Spine CT 10/15/17 0000 Signed Impressions: Service Date/Time: Sunday, October 15, 2017 23:44 - CONCLUSION: 1. No fracture or dislocation. 2. Degenerative changes. Steve Funes Jr., MD Objective Remarks AAox3 nad clear lungs BL S1S2 RRR soft abdomenb Left lower extremity with good palpable pedal pulse on brace with clean dressing. Procedures Closed reduction left tibial plateau fracture, external fixation left leg Medications and IVs Current Medications Medications (Trade) Dose Ordered Sig/Kyra Route Start Time Stop Time Status Last Admin (NS Flush) 2 ml UNSCH PRN IV FLUSH 10/16/17 02:45 (NS Flush) 2 ml BID IV FLUSH 10/16/17 09:00 10/27/17 09:14 (Narcan Inj) 0.4 mg UNSCH PRN IV PUSH 10/16/17 02:45 (Romazicon Inj) 0.2 mg Q1M PRN IV PUSH 10/16/17 10:15 (Ativan) 1 mg Q4H PRN PO 10/16/17 10:15 10/26/17 16:47 (Ativan Inj) 1 mg Q4H PRN IV PUSH 10/16/17 10:15 (Ativan) 2 mg Q2H PRN PO 10/16/17 10:15 (Ativan Inj) 2 mg Q2H PRN IV PUSH 10/16/17 11:00 (Ativan Inj) 2 mg Q1H PRN IV PUSH 10/16/17 11:00 (Ativan Inj) 2 mg Q15M PRN IV PUSH 10/16/17 10:15 (Ativan) 1 mg Q6H PRN PO 10/16/17 11:00 10/27/17 12:14 (Vasotec Inj) 1.25 mg Q6H PRN IV PUSH 10/16/17 11:00 (Suzanna-Colace) 1 tab BID PO 10/16/17 21:00 10/27/17 09:00 ([place] 10-325 Mg) 1 tab Q3H PRN PO 10/16/17 14:45 10/27/17 12:10 (Zofran Inj) 4 mg Q4H PRN IVP 10/16/17 14:45 (Benadryl) 25 mg Q6H PRN PO 10/16/17 14:45 (Colace Liq) 100 mg BID PO 10/19/17 09:00 10/23/17 20:40 (Milk Of Magnesia Liq) 30 ml BID PO 10/19/17 09:00 10/24/17 09:00 (Senokot) 17.2 mg Q12H PRN PO 10/19/17 01:45 10/19/17 20:36 (Lactulose Liq) 30 ml Q24H PRN PO 10/19/17 01:45 (Dulcolax Supp) 10 mg Q24H PRN RECTAL 10/19/17 01:45 (CeleXA) 10 mg DAILY PO 10/21/17 09:00 10/27/17 09:03 (Prinivil) 10 mg DAILY PO 10/21/17 09:00 10/27/17 09:03 (Microzide) 12.5 mg DAILY PO 10/21/17 09:00 10/27/17 09:03 Lactated Ringer's 1,000 ml @ 80 mls/hr [id number] IV 10/22/17 10:23 10/23/17 02:36 (Lovenox Inj) 30 mg Q12H SQ 10/23/17 10:00 10/27/17 09:07 (Vitamin D3) 1,000 units DAILY PO 10/23/17 09:00 10/27/17 09:03 (Drisdol) 50,000 units Q7D PO 10/22/17 13:00 10/22/17 14:07 (Dilaudid Pf Inj) 1 mg Q3H PRN IV PUSH 10/23/17 06:45 10/25/17 08:05 (Protonix) 40 mg DAILY PO 10/26/17 09:00 10/27/17 09:03 (Ferrous Sulfate) 325 mg BID PO 10/25/17 12:45 10/27/17 09:00 (Baciguent Oint) 1 applic UNSCH PRN TOPICAL 10/26/17 00:15 A/P Problem List: (1) Tibial plateau fracture, left ICD Code: S82.142A - Displaced bicondylar fracture of left tibia, initial encounter for closed fracture Status: Acute (2) Anxiety ICD Code: F41.9 - Anxiety disorder, unspecified Assessment and Plan SP left tibial plateau fracture repair, with external fixator placed continue pain control management as per orthopedic surgery recs Swelling should be improved by Sunday for surgery. Authorization pending for discharge to [facility] today. Plan is to follow-up in orthopedic office on Sunday with Dr. Romo to evaluate swelling. If swelling is appropriate and then surgery will be planned.. He will need to continue on Lovenox through Sunday and then hold on Sunday sp ORIF of Left tibial plateau fracture and removal of internal fixator. Management as per orthopedic surgery. LOC/syncope - no recurrence, likely from dehydration, may benefit from holter upon discharge. Hypertension -Stable - continue home antihypertensive medications. Acute Post op anemia Hemoglobin dropped t 6.2 after surgical procedure. no other signs of bleeding. Status post infusion of 2 units of packed red blood cells with appropriate hemoglobin response with hemoglobin trending up to 8.5. Patient complains of darker stools the previous days. Offered a gastroenterology consultation for possible EGD/colonoscopy while inpatient, however patient refused. I will refer to gastroenterology as an outpatient. Discharge Planning DC in a.m. once [facility] arranged. Problem Qualifiers (1) Tibial plateau fracture, left: Qualified Codes: S82.142A - Displaced bicondylar fracture of left tibia, initial encounter for closed fracture Robert Tovar MD Oct 27, 2017 15:14
[2017-10-27] MEDS: LACTATED RINGER'S 1000 ML INJ 1,000 ML IV SCH ×2 (15:23→21:37)
[2017-10-28] VITALS (18 sets, daily range): BP systolic 121–132; BP diastolic 58–68; PULSE 67–96; RESP 16–17; TEMP 96.8–97.8; O2SAT 96–99
[2017-10-28] MEDS: LORazepam 1 MG TAB PO PRN ×3 (03:04→15:36)
[2017-10-28] MEDS: ACETAMINOPHEN/HYDROcodone 325 MG/10 MG TAB PO PRN ×6 (03:05→23:18)
[2017-10-28] MEDS: ENOXAPARIN SODIUM 30 MG/0.3 ML SYRINGE SQ SCH ×2 (08:42→20:12)
[2017-10-28] MEDS: HYDROCHLOROTHIAZIDE 12.5 MG CAP PO SCH (08:43)
[2017-10-28] MEDS: FERROUS SULFATE 325 MG (65 MG ELEMENTAL IRON) TAB PO SCH ×2 (08:43→20:12)
[2017-10-28] MEDS: CHOLECALCIFEROL (VIT D3) 1000 UNIT TAB PO SCH (08:43)
[2017-10-28] MEDS: CITALOPRAM HYDROBROMIDE 20 MG TAB PO SCH (08:43)
[2017-10-28] MEDS: DOCUSATE SODIUM 100 MG/10 ML UDC PO SCH ×2 (08:44→20:16)
[2017-10-28] MEDS: DOCUSATE SODIUM 50 MG/SENNA 8.6 MG TAB PO SCH ×2 (08:44→20:16)
[2017-10-28] MEDS: SODIUM CHLORIDE 0.9% FLUSH 10 ML FLUSH IV FLUSH SCH ×2 (08:44→20:12)
[2017-10-28] MEDS: MAGNESIUM HYDROXIDE SUSP 30 ML CUP PO SCH ×2 (08:44→20:16)
[2017-10-28] MEDS: LACTATED RINGER'S 1000 ML INJ 1,000 ML IV SCH ×2 (08:45→20:17)
[2017-10-28] MEDS: PANTOPRAZOLE SOD 40 MG DELAYED RELEASE TAB PO SCH (08:48)
[2017-10-28] MEDS: LISINOPRIL 10 MG TAB PO SCH (08:48)
[2017-10-29] VITALS (9 sets, daily range): BP systolic 121–148; BP diastolic 61–80; PULSE 72–104; RESP 16–18; TEMP 97.4–98.2; O2SAT 97–100
--- NOTE | 2017-10-29 00:37 | HHI.PR ---
Subjective Remarks Deferred entry - patient seen on 10/28 Patient denies cp/sob Denies diarrhea Pain controlled Objective Vitals Vital Signs Date Time Temp Pulse Resp B/P (MAP) Pulse Ox O2 Delivery O2 Flow Rate FiO2 10/28/17 18:59 97.8 93 16 125/60 (81) 97 10/28/17 18:21 90 10/28/17 17:49 86 10/28/17 17:20 84 10/28/17 16:50 90 10/28/17 16:30 96 10/28/17 16:00 97.8 91 16 132/62 (85) 98 10/28/17 15:31 94 10/28/17 14:05 92 10/28/17 12:29 67 10/28/17 12:00 97.2 81 16 124/59 (80) 96 10/28/17 10:50 84 10/28/17 08:00 96.8 84 16 123/59 (80) 97 10/28/17 07:38 68 10/28/17 04:00 84 10/28/17 03:05 97.5 81 16 121/68 (85) 99 10/28/17 00:35 97.8 96 17 122/58 (79) 96 I/O 10/28/17 10/28/17 10/28/17 10/29/17 10/29/17 10/29/17 07:00 15:00 23:00 07:00 15:00 23:00 Intake Total 960 ml 600 ml Output Total 1000 ml Balance -40 ml 600 ml Intake Oral 960 ml 600 ml Output Urine Total 1000 ml # Voids 3 # Bowel Movements 0 0 Result Diagram: 10/25/17 0541 10/25/17 0541 Objective Remarks AAox3 nad clear lungs BL S1S2 RRR soft abdomenb Left lower extremity with good palpable pedal pulse on brace with clean dressing. Procedures Closed reduction left tibial plateau fracture, external fixation left leg A/P Problem List: (1) Tibial plateau fracture, left ICD Code: S82.142A - Displaced bicondylar fracture of left tibia, initial encounter for closed fracture Status: Acute (2) Anxiety ICD Code: F41.9 - Anxiety disorder, unspecified Assessment and Plan SP left tibial plateau fracture repair, with external fixator placed continue pain control management as per orthopedic surgery recs Swelling should be improved by Sunday for surgery. Authorization pending for discharge to [facility] today. Plan is to follow-up in orthopedic office on Sunday with Dr. Romo to evaluate swelling. If swelling is appropriate and then surgery will be planned.. He will need to continue on Lovenox through Sunday and then hold on Sunday sp ORIF of Left tibial plateau fracture and removal of internal fixator. Management as per orthopedic surgery. LOC/syncope - no recurrence, likely from dehydration, may benefit from holter upon discharge. Hypertension -Stable - continue home antihypertensive medications. Acute Post op anemia Hemoglobin dropped t 6.2 after surgical procedure. no other signs of bleeding. Status post infusion of 2 units of packed red blood cells with appropriate hemoglobin response with hemoglobin trending up to 8.5. Patient complains of darker stools the previous days. Offered a gastroenterology consultation for possible EGD/colonoscopy while inpatient, however patient refused. I will refer to gastroenterology as an outpatient. Discharge Planning DC in a.m. once [facility] arranged. Problem Qualifiers (1) Tibial plateau fracture, left: Qualified Codes: S82.142A - Displaced bicondylar fracture of left tibia, initial encounter for closed fracture Robert Tovar MD Oct 29, 2017 00:37
[2017-10-29] MEDS: ACETAMINOPHEN/HYDROcodone 325 MG/10 MG TAB PO PRN ×7 (02:16→21:40)
[2017-10-29] MEDS: LORazepam 1 MG TAB PO PRN ×4 (04:00→22:50)
[2017-10-29] MEDS: MAGNESIUM HYDROXIDE SUSP 30 ML CUP PO SCH ×2 (09:00→21:43)
[2017-10-29] MEDS: DOCUSATE SODIUM 100 MG/10 ML UDC PO SCH ×2 (09:00→21:43)
[2017-10-29] MEDS: PANTOPRAZOLE SOD 40 MG DELAYED RELEASE TAB PO SCH (09:19)
[2017-10-29] MEDS: DOCUSATE SODIUM 50 MG/SENNA 8.6 MG TAB PO SCH ×2 (09:20→21:43)
[2017-10-29] MEDS: HYDROCHLOROTHIAZIDE 12.5 MG CAP PO SCH (09:20)
[2017-10-29] MEDS: FERROUS SULFATE 325 MG (65 MG ELEMENTAL IRON) TAB PO SCH ×2 (09:20→21:42)
[2017-10-29] MEDS: CITALOPRAM HYDROBROMIDE 20 MG TAB PO SCH (09:20)
[2017-10-29] MEDS: LISINOPRIL 10 MG TAB PO SCH (09:20)
[2017-10-29] MEDS: CHOLECALCIFEROL (VIT D3) 1000 UNIT TAB PO SCH (09:20)
[2017-10-29] MEDS: ENOXAPARIN SODIUM 30 MG/0.3 ML SYRINGE SQ SCH ×2 (09:21→21:40)
[2017-10-29] MEDS: SODIUM CHLORIDE 0.9% FLUSH 10 ML FLUSH IV FLUSH SCH ×2 (09:25→21:43)
--- NOTE | 2017-10-29 10:18 | HHI.PR ---
Subjective Remarks Patient initially sleeping comfortably. Pain controlled Afebrile tolerating PT Objective Vitals Vital Signs Date Time Temp Pulse Resp B/P (MAP) Pulse Ox O2 Delivery O2 Flow Rate FiO2 10/29/17 08:00 97.7 78 18 136/61 (86) 99 10/29/17 07:46 72 10/29/17 03:25 97.5 85 16 122/80 (94) 97 10/29/17 00:10 98.2 80 16 126/64 (84) 97 10/28/17 18:59 97.8 93 16 125/60 (81) 97 10/28/17 18:21 90 10/28/17 17:49 86 10/28/17 17:20 84 10/28/17 16:50 90 10/28/17 16:30 96 10/28/17 16:00 97.8 91 16 132/62 (85) 98 10/28/17 15:31 94 10/28/17 14:05 92 10/28/17 12:29 67 10/28/17 12:00 97.2 81 16 124/59 (80) 96 10/28/17 10:50 84 I/O 10/28/17 10/28/17 10/28/17 10/29/17 10/29/17 10/29/17 06:59 14:59 22:59 06:59 14:59 22:59 Intake Total 960 ml 600 ml 1020 ml Output Total 1000 ml 850 ml Balance -40 ml 600 ml 170 ml Intake Oral 960 ml 600 ml 1020 ml Output Urine Total 1000 ml 850 ml # Voids 3 # Bowel Movements 0 0 0 Result Diagram: 10/25/17 0541 10/25/17 0541 Imaging Last Impressions Knee X-Ray 10/22/17 0000 Signed Impressions: Service Date/Time: Sunday, October 22, 2017 10:13 - CONCLUSION: 1. Excellent alignment of the patient's tibial fracture post plating. Gerry Nicholson MD Tibia/Fibula X-Ray 10/16/17 0050 Signed Impressions: Service Date/Time: Monday, October 16, 2017 01:06 - CONCLUSION: Proximal tibial fractures as detailed above. Steve Funes Jr., MD Lower Extremity CT 10/16/17 0000 Signed Impressions: Service Date/Time: Monday, October 16, 2017 05:54 - CONCLUSION: Comminuted proximal tibial fracture as detailed above. Steve Funes Jr., MD Maxillofacial CT 10/15/17 0000 Signed Impressions: Service Date/Time: Sunday, October 15, 2017 23:44 - CONCLUSION: 1. Frontal soft tissue swelling. 2. No fractures. Steve Funes Jr., MD Head CT 10/15/17 0000 Signed Impressions: Service Date/Time: Sunday, October 15, 2017 23:44 - CONCLUSION: No acute disease. Steve Funes Jr., MD Cervical Spine CT 10/15/17 0000 Signed Impressions: Service Date/Time: Sunday, October 15, 2017 23:44 - CONCLUSION: 1. No fracture or dislocation. 2. Degenerative changes. Steve Funes Jr., MD Objective Remarks AAox3 nad clear lungs BL S1S2 RRR soft abdomenb Left lower extremity with good palpable pedal pulse on brace with clean dressing. Procedures Closed reduction left tibial plateau fracture, external fixation left leg Medications and IVs Current Medications Medications (Trade) Dose Ordered Sig/Kyra Route Start Time Stop Time Status Last Admin (NS Flush) 2 ml UNSCH PRN IV FLUSH 10/16/17 02:45 (NS Flush) 2 ml BID IV FLUSH 10/16/17 09:00 10/29/17 09:25 (Narcan Inj) 0.4 mg UNSCH PRN IV PUSH 10/16/17 02:45 (Romazicon Inj) 0.2 mg Q1M PRN IV PUSH 10/16/17 10:15 (Ativan) 1 mg Q4H PRN PO 10/16/17 10:15 10/27/17 18:33 (Ativan Inj) 1 mg Q4H PRN IV PUSH 10/16/17 10:15 (Ativan) 2 mg Q2H PRN PO 10/16/17 10:15 (Ativan Inj) 2 mg Q2H PRN IV PUSH 10/16/17 11:00 (Ativan Inj) 2 mg Q1H PRN IV PUSH 10/16/17 11:00 (Ativan Inj) 2 mg Q15M PRN IV PUSH 10/16/17 10:15 (Ativan) 1 mg Q6H PRN PO 10/16/17 11:00 10/29/17 04:00 (Vasotec Inj) 1.25 mg Q6H PRN IV PUSH 10/16/17 11:00 (Suzanna-Colace) 1 tab BID PO 10/16/17 21:00 10/29/17 09:20 ([place] 10-325 Mg) 1 tab Q3H PRN PO 10/16/17 14:45 10/29/17 09:22 (Zofran Inj) 4 mg Q4H PRN IVP 10/16/17 14:45 (Benadryl) 25 mg Q6H PRN PO 10/16/17 14:45 (Colace Liq) 100 mg BID PO 10/19/17 09:00 10/23/17 20:40 (Milk Of Magnesia Liq) 30 ml BID PO 10/19/17 09:00 10/24/17 09:00 (Senokot) 17.2 mg Q12H PRN PO 10/19/17 01:45 10/19/17 20:36 (Lactulose Liq) 30 ml Q24H PRN PO 10/19/17 01:45 (Dulcolax Supp) 10 mg Q24H PRN RECTAL 10/19/17 01:45 (CeleXA) 10 mg DAILY PO 10/21/17 09:00 10/29/17 09:20 (Prinivil) 10 mg DAILY PO 10/21/17 09:00 10/29/17 09:20 (Microzide) 12.5 mg DAILY PO 10/21/17 09:00 10/29/17 09:20 Lactated Ringer's 1,000 ml @ 80 mls/hr [id number] IV 10/22/17 10:23 10/23/17 02:36 (Lovenox Inj) 30 mg Q12H SQ 10/23/17 10:00 10/29/17 09:21 (Vitamin D3) 1,000 units DAILY PO 10/23/17 09:00 10/29/17 09:20 (Drisdol) 50,000 units Q7D PO 10/22/17 13:00 10/22/17 14:07 (Dilaudid Pf Inj) 1 mg Q3H PRN IV PUSH 10/23/17 06:45 10/25/17 08:05 (Protonix) 40 mg DAILY PO 10/26/17 09:00 10/29/17 09:19 (Ferrous Sulfate) 325 mg BID PO 10/25/17 12:45 10/29/17 09:20 (Baciguent Oint) 1 applic UNSCH PRN TOPICAL 10/26/17 00:15 A/P Problem List: (1) Tibial plateau fracture, left ICD Code: S82.142A - Displaced bicondylar fracture of left tibia, initial encounter for closed fracture Status: Acute (2) Anxiety ICD Code: F41.9 - Anxiety disorder, unspecified Assessment and Plan SP left tibial plateau fracture repair, with external fixator placed continue pain control management as per orthopedic surgery recs Swelling should be improved by Sunday for surgery. Authorization pending for discharge to [facility] today. Plan is to follow-up in orthopedic office on Sunday with Dr. Romo to evaluate swelling. If swelling is appropriate and then surgery will be planned.. He will need to continue on Lovenox through Sunday and then hold on Sunday sp ORIF of Left tibial plateau fracture and removal of internal fixator. Management as per orthopedic surgery. LOC/syncope - no recurrence, likely from dehydration, may benefit from holter upon discharge. Hypertension -Stable - continue home antihypertensive medications. Acute Post op anemia Hemoglobin dropped t 6.2 after surgical procedure. no other signs of bleeding. Status post infusion of 2 units of packed red blood cells with appropriate hemoglobin response with hemoglobin trending up to 8.5. Patient complains of darker stools the previous days. Offered a gastroenterology consultation for possible EGD/colonoscopy while inpatient, however patient refused. I will refer to gastroenterology as an outpatient. Discharge Planning DC in once [facility] arranged. Problem Qualifiers (1) Tibial plateau fracture, left: Qualified Codes: S82.142A - Displaced bicondylar fracture of left tibia, initial encounter for closed fracture Robert Tovar MD Oct 29, 2017 10:18
[2017-10-29] MEDS: ERGOCALCIFEROL (VIT D2) 50,000 UNIT CAP PO SCH (12:29)
[2017-10-29] MEDS: LACTATED RINGER'S 1000 ML INJ 1,000 ML IV SCH ×2 (17:23→21:43)
[2017-10-30] VITALS: PULSE 78
[2017-10-30] MEDS: ACETAMINOPHEN/HYDROcodone 325 MG/10 MG TAB PO PRN ×5 (01:13→16:12)
[2017-10-30 03:40] VITALS: BP 137/83; PULSE 76; RESP 17; TEMP 97.5; O2SAT 97
[2017-10-30 04:00] VITALS: PULSE 76
[2017-10-30] MEDS: LORazepam 1 MG TAB PO PRN ×3 (04:15→16:12)
[2017-10-30 08:00] VITALS: BP 120/74; PULSE 82; RESP 18; TEMP 97.2; O2SAT 97
[2017-10-30] MEDS: MAGNESIUM HYDROXIDE SUSP 30 ML CUP PO SCH (09:00)
[2017-10-30] MEDS: DOCUSATE SODIUM 50 MG/SENNA 8.6 MG TAB PO SCH (09:00)
[2017-10-30] MEDS: DOCUSATE SODIUM 100 MG/10 ML UDC PO SCH (09:00)
[2017-10-30] MEDS: PANTOPRAZOLE SOD 40 MG DELAYED RELEASE TAB PO SCH (09:26)
[2017-10-30] MEDS: CHOLECALCIFEROL (VIT D3) 1000 UNIT TAB PO SCH (09:27)
[2017-10-30] MEDS: HYDROCHLOROTHIAZIDE 12.5 MG CAP PO SCH (09:27)
[2017-10-30] MEDS: LISINOPRIL 10 MG TAB PO SCH (09:27)
[2017-10-30] MEDS: CITALOPRAM HYDROBROMIDE 20 MG TAB PO SCH (09:28)
[2017-10-30] MEDS: FERROUS SULFATE 325 MG (65 MG ELEMENTAL IRON) TAB PO SCH (09:28)
[2017-10-30] MEDS: ENOXAPARIN SODIUM 30 MG/0.3 ML SYRINGE SQ SCH (09:37)
[2017-10-30] MEDS: SODIUM CHLORIDE 0.9% FLUSH 10 ML FLUSH IV FLUSH SCH (09:37)
[2017-10-30] MEDS: LACTATED RINGER'S 1000 ML INJ 1,000 ML IV SCH (10:31)
[2017-10-30 12:00] VITALS: BP 120/58; PULSE 94; RESP 18; TEMP 97.5; O2SAT 97
== END 2017-10-30 17:11 | disposition home health service (06) | DRG 493 ==
LOC: NEDAMB 22:47 → NEDA 10-16 02:41 → N06A 10-16 17:04
PROVIDERS: ADMIT Hospitalist; ATTEND Hospitalist
PROC: 0QSH35Z Reposition Left Tibia with External Fixation Device, Percutaneous Approach (ICD-10-PCS; principal; 2017-10-16 13:32)
PROC: 0QSH04Z Reposition Left Tibia with Internal Fixation Device, Open Approach (ICD-10-PCS; 2017-10-22)
PROC: 0QPHX5Z Removal of External Fixation Device from Left Tibia, External Approach (ICD-10-PCS; 2017-10-22)
PROC: 30233N1 Transfusion of Nonautologous Red Blood Cells into Peripheral Vein, Percutaneous Approach (ICD-10-PCS; 2017-10-23)
DX: S82.142A Displaced bicondylar fracture of left tibia, initial encounter for closed fracture (principal); S06.9X9A Unspecified intracranial injury with loss of consciousness of unspecified duration, initial encounter; I10 Essential (primary) hypertension; K21.9 Gastro-esophageal reflux disease without esophagitis; S00.81XA Abrasion of other part of head, initial encounter; W01.0XXA Fall on same level from slipping, tripping and stumbling without subsequent striking against object, initial encounter; F41.9 Anxiety disorder, unspecified; E86.0 Dehydration; M60.9 Myositis, unspecified; R55 Syncope and collapse; E66.3 Overweight; Z68.36 Body mass index [BMI] 36.0-36.9, adult; D64.9 Anemia, unspecified; Y93.89 Activity, other specified; Z87.891 Personal history of nicotine dependence; Y92.009 Unspecified place in unspecified non-institutional (private) residence as the place of occurrence of the external cause; D64.89 Other specified anemias
CPT/HCPCS: 36430; 70450; 70486; 72125; 73560; 73590; 73700; 76000; 80048; 80053; 80307; 82550; 82552; 82652; 83735; 84100; 84484; 85014; 85018; 85025; 85027; 85610; 85730; 86850; 86900; 86901; 86920; 90471; 90714; 93005; 93225; 93226; 94150; 96374; 99285; C1713; J0131; J0690; J1100; J1170; J1580; J1650; J1885; J2060; J2175; J2250; J2270; J2370; J2405; J3010; J3370; J7050; J7120; L1830; P9016